=== PATIENT | female | born 1990 | race Caucasian/White ===

== ENCOUNTER 2020-08-12 15:24 | Outpatient (REF) | payer MEDICAID, SELFPAY ==
[2020-08-12 20:53] LABS: HGB 12.3 g/dL (11.2-15.7); MCH 22.8 pg (27.0-33.0); MCHC 30.8 % (32.0-36.0); MCV 74.2 fL (80-95); MPV 11.6 fL (8.0-11.0); Platelet Count 296 10^3/uL (130-400); RBC 5.39 10^6/uL (3.93-5.22); RDW 16.5 % (11.7-14.6); RDW-SD 43.8 fL; WBC 9.22 10^3/uL (4.4-10.8)
[2020-08-12 21:17] LABS: TSH (W/Ref FT4) 1.47 uIU/mL (0.36-3.74)
[2020-08-13 10:17] LABS: Anion Gap 12.6 mmol/L (3-11); BUN 6 mg/dL (7-18); CO2 25.4 mmol/L (21.0-32.0); CREATININE 0.9 mg/dL (0.55-1.02); Chloride 107 mmol/L (98-107); Glucose 92 mg/dL (74-106); Sodium 145 mmol/L (136-145)
== END 2020-08-12 15:25 | disposition home or self-care (01) ==
LOC: LBN 15:24
PROVIDERS: Visit Provider Family Medicine
DX: R20.2 Paresthesia of skin (principal)
CPT/HCPCS: 80048; 85027; 83880; 84443

== ENCOUNTER 2020-10-24 10:37 | Outpatient (REF) | payer MEDICAID, SELFPAY ==
[2020-10-25 13:37] LABS: COVID-19 RT-PCR UVMMC Result Negative (Negative)
== END 2020-10-24 10:38 | disposition home or self-care (01) ==
LOC: LBN 10:37
PROVIDERS: Visit Provider Nurse Practitioner Family
DX: Z20.822 Contact with and (suspected) exposure to COVID-19 (principal)
CPT/HCPCS: U0003

== ENCOUNTER 2020-11-09 14:23 | Outpatient (CLI) | payer MEDICAID, SELFPAY ==
--- NOTE | 2020-11-09 | DI.RAD_ITS ---
Exam(s) XR CHEST 2V PA LATERAL EXAM: XR CHEST 2V PA LATERAL CLINICAL HISTORY: COUGH TECHNIQUE: 2D digital imaging was performed. COMPARISON: No exams were available for comparison FINDINGS: The heart is not enlarged. The lungs are clear and well expanded. No pleural effusion seen. Mediastin al contours appear intact. IMPRESSION: Normal chest. RADIATION DOSE DELIVERED: Total DLP
--- NOTE | 2020-11-09 16:42 | DI.VRAD_ITS ---
PROCEDURE INFORMATION: Exam: XR Chest Exam date and time: 11/09/2020 2:55 PM Age: 30 years old Clinical indication: Patient HX: Cough, cold [id number] that is settling in pts chest. TECHNIQUE: Imaging protocol: XR of the chest. Views: 2 views. COMPARISON: No relevant prior studies available. FINDINGS: Lungs: Incidental note made of azygos lobe. No acute infiltrates noted. Pleural spaces: Unremarkable. No pleural effusion. No pneumothorax. Heart/Mediastinum: Unremarkable. No cardiomegaly. Bones/joints: Unremarkable. IMPRESSION: No evidence for acute abnormality in the chest. Dictated and Authenticated by: Maricarmen Woodward MD. Ordering:MOUNA Marcelo MD
== END 2020-11-09 14:43 ==
PROVIDERS: Visit Provider Physician Assistant Medical
DX: R05 Cough (principal)
CPT/HCPCS: 71046

== ENCOUNTER 2021-02-25 15:44 | Outpatient (REF) | payer MEDICAID, SELFPAY ==
[2021-02-27 10:14] LABS: COVID-19 RT-PCR UVMMC Result Negative (Negative)
== END 2021-02-25 15:45 | disposition home or self-care (01) ==
LOC: LBN 15:44
PROVIDERS: Visit Provider Nurse Practitioner Family
DX: Z20.822 Contact with and (suspected) exposure to COVID-19 (principal); J34.89 Other specified disorders of nose and nasal sinuses
CPT/HCPCS: U0003

== ENCOUNTER 2022-05-29 08:24 | Emergency (ER) | payer MEDICAID, SELFPAY ==
[2022-05-29 08:31] VITALS: BP 126/68; PULSE 108; RESP 18; TEMP 36.5; O2SAT 100
--- NOTE | 2022-05-29 08:34 | DI.US_ITS ---
Exam(s) US OB 1ST TRIMESTER EXAM: US OB 1ST TRIMESTER CLINICAL HISTORY: Positive with spotting and cramping. COMPARISON: No exams were available for comparison TECHNIQUE: Transabdominal Transvaginal first trimester obstetrical ultrasound performed. FINDINGS: The uterus measures 7.6 x 5 x 5.8 cm. The endometrium measures 11 millimeters in thickness. No gest ational sac is seen. There is no fluid within the endometrial cavity. The ovaries are normal in siz e and appearance. There is no corpus luteum cyst. There is no free fluid. IMPRESSION: No intrauterine is visible at this time.. No evidence of ectopic or ovarian tors ion. DATA REPOSITORY:
[2022-05-29 08:59] LABS: Abs Immature Grans 0.03 10^3/uL (0.0-0.06); Absolute Basophil Count 0.02 10^3/uL (0.0-0.2); Absolute Eosinophil Count 0.07 10^3/uL (0.0-0.7); Absolute Lymphocyte Count 1.77 10^3/uL (1.2-3.4); Absolute Monocyte Count 0.37 10^3/uL (0.1-0.8); Absolute Neutrophil Count 6.28 10^3/uL (1.2-6.7); Basophils % 0.2; Eosinophils % 0.8; HCT 41.4 % (36.0-46.0); HGB 13.1 g/dL (11.2-15.7); Immature Grans % 0.4; Lymphocytes % 20.7; MCH 25.1 pg (27.0-33.0); MCHC 31.6 % (32.0-36.0); MCV 80 fL (80-95); MPV 11.1 fL (8.0-11.0); Monocytes % 4.3; Neutrophils % 73.6; Platelet Count 245 10^3/uL (130-400); RBC 5.21 10^6/uL (3.93-5.22); RDW 14.2 % (11.7-14.6); RDW-SD 41.1 fL; WBC 8.54 10^3/uL (4.4-10.8)
[2022-05-29 09:19] LABS: ALT 23 U/L (14-59); AST 14 U/L (15-37); Albumin 3.6 g/dL (3.4-5.0); Alkaline Phosphatase 77 U/L (46-116); Anion Gap 9.5 mmol/L (3-11); BUN 6 mg/dL (7-18); Bilirubin, Total 0.2 mg/dL (0.2-1.0); CO2 24.5 mmol/L (21.0-32.0); CREATININE 0.8 mg/dL (0.55-1.02); Calcium 8.5 mg/dL (8.5-10.1); Chloride 103 mmol/L (98-107); Estimated GFR 101.59 (mL/min/1.73m2); Glucose 156 mg/dL (74-106); HCG Quant, Pregnancy 12 mIU/mL (1-3); Potassium 3.6 mmol/L (3.5-5.1); Sodium 137 mmol/L (136-145); Total Protein 7.1 g/dL (6.4-8.2)
--- NOTE | 2022-05-29 10:02 | NUR.NOTE ---
Nursing Note: Report received from Kenton MALLOY
[2022-05-29 10:21] LABS: Bilirubin Negative (Negative); Blood Negative (Negative); Clarity Clear (Clear); Glucose Negative (Negative); Ketones Negative (Negative); Leukocyte Esterase Negative (Negative); Nitrite Negative (Negative); Specific Gravity 1.025 (1.005-1.025); Urobilinogen 0.2 EU/dL (Up TO 0.2)
[2022-05-29 10:47] VITALS: BP 109/63; PULSE 82; RESP 16; O2SAT 99
--- NOTE | 2022-05-29 11:17 | W.ED.GENAD ---
Discharge Plan Disposition Patient Disposition: Home Discharge Details Clinical Impression: Early stage of , Vaginal bleeding during Primary Care Provider: [facility] Provider: Ari Lau Home Meds and New Rx's Prescriptions: No Action No Known Home Meds Discharge Instructions Instructions: Non-Threatening First Trimester Vaginal Bleed (ED) Additional Instructions: Continue to monitor symptoms and if you have any new or significant worsening of your symptoms return immediately to the emergency department for reassessment. Otherwise please follow-up with your OB provider next week as scheduled and inform them of your visit today. Please start taking a vitamin today Referrals: [facility] [Outside] - None Discharge Data Discharge Date/Time-TO BE ENTERED AT DEPARTURE: 05/29/22 11:36 Medical Decision Making Patient presenting to the emergency department for chief complaint of nausea and abdominal cramping over the past couple weeks. Just 3 days ago she tested positive for and last menstrual period was 04/27/2022. Patient did have spotting a couple days ago which is fully resolved and states that cramping has slightly improved. Physical exam was unremarkable but vaginal exam was deferred at this time. Patient is a G2, P1 with no reported issues with delivery but has had a miscarriage. We will plan on checking labs including hCG quant and ultrasound imaging. High suspicion of early with potential spotting due to upcoming menses but also of consideration is non-IUP , signs of early . Review of labs show that patient does have positive urine test, overall unremarkable nondiagnostic CBC, CMP shows BUN of 6, glucose of 156, low AST. Beta quant is 12, urine is unremarkable for any signs of infection and all values are within normal limits, patient is O- for blood type. Ultrasound was reviewed and read as no findings noted. I did call and speak with Dr. Ordonez OB at [facility] which patient is a patient of that group. After discussion of case along with recommendations he stated to hold off on any RhoGAM, and to have patient continue to monitor symptoms with close return precautions for worsening of symptoms otherwise to follow-up in their office as previously scheduled for next week. Discussed this with patient who is in agreement with plan of care I did recommend that she resume vitamins starting today. After discussion of diagnosis and plan of care patient has no further needs, questions, or concerns and states clear understanding to return to the emergency department for any worsening symptoms. This documentation was generated using Qeex[employer] dictation system, please disregard any oddities of phrase or misspellings. HPI General Mode of arrival: ambulatory. Date/Time Provider Initiated Documentation: 05/29/22 08:34. Limitations to Documentation: no limitations. Information obtained by: patient and RN notes reviewed. History of Present Illness 31 year old F presents to the emergency department with the chief complaint of Positive with some nausea and spotting, described as moderate, with intensity rated at 4. Quality is described as aching, and is localized to the abdomen. Patient reports no radiation. Patient started experiencing this week(s) (2) and it has been constant. No relieving factors improve symptom(s), No exacerbating factors reported . Patient notes no other symptoms.. Patient did receive the following treatments prior to arrival, none Related Data Home Medications Medication Instructions Recorded Confirmed Unknown [No Known Home Meds] 05/29/22 05/29/22 Allergies Allergy/AdvReac Type Severity Reaction Status Date / Time aspirin Allergy Unverified 05/29/22 08:34 General Stated Complaint: Abd Prob CALLIE: 3 Review of Systems Constitutional Constitutional: Denies chills, Denies fever(s) and Reports poor appetite Cardiovascular Cardiovascular: Denies chest pain and Denies dyspnea Respiratory Respiratory: Denies cough and Denies dyspnea Gastrointestinal Gastrointestinal: Reports as per HPI, Reports abdominal pain, Denies melena, Denies change in bowel habits, Denies constipation, Denies diarrhea, Reports nausea and Reports vomiting Genitourinary Genitourinary: Reports as per HPI, Denies hematuria, Reports light periods, Denies dyspareunia, Denies pelvic pain, Denies flank pain, Denies urinary incontinence, Denies urinary hesitancy, Denies urinary urgency and Denies vaginal discharge Integumentary/Breasts Skin/Breast: Denies rash PFSH All Active Problems Early stage of (Acute) Vaginal bleeding during (Acute) Surgical History History of wisdom tooth extraction (2014) Family History Mother Asthma Depression Paternal Aunt No problems noted. 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 Pets and animals: Yes Pets and animals: dog(s) Sexually active: Yes Do you think of yourself as: straight/heterosexual Current gender identity: female What is your relationship status?: never How often do you talk on the phone with friends or family?: three or more times per week How often do you get together with friends or relatives?: twice per week Do you belong to any clubs or organized social groups?: no Panel score (0-1 are the most socially isolated patients): 1 What type of physical activity do you participate in: none Special kaylee needs: No Seatbelt use: always Helmet use: No Drive intox or ride w/intox rental car ferry driver: No Do you feel safe at home: Yes Do you feel safe in your relationship?: Yes Exam Const General: cooperative Orientation: alert, awake and oriented x3 Resp Effort & Inspection: normal respiratory effort and able to speak in complete sentences Auscultation: clear to auscultation bilaterally Cardio Rate: regular rate Rhythm: regular rhythm Heart Sounds: S1 normal and S2 normal GI Palpation: soft, no hepatosplenomegaly, not firm, no guarding, no masses, no pulsatile masses, not rigid, no splenomegaly and tender Auscultation: normal bowel sounds General: deferred Back/Spine/Pelvis Back: no CVA tenderness Neuro General: patient alert, patient awake, patient oriented x3, gait normal and moves all extremities Course Vital Signs Vital signs: Vital Signs Temperature 36.5 C 05/29/22 08:31 Pulse 108 H 05/29/22 08:31 Respiratory Rate 18 05/29/22 08:31 Blood Pressure 126/68 05/29/22 08:31 Pulse Oximetry 100 05/29/22 08:31 Temperature 36.5 C 05/29/22 08:31 Temperature Source Temporal Artery Scan 05/29/22 08:31 Pulse 82 05/29/22 10:47 Respiratory Rate 16 05/29/22 10:47 Respiratory Effort Normal, Non-Labored 05/29/22 08:33 Blood Pressure 109/63 05/29/22 10:47 Pulse Oximetry 99 05/29/22 10:47 Oxygen Delivery Method Room Air 05/29/22 10:47 Oxygen Flow Rate 0 05/29/22 10:47 Lab/Test Results Lab/Test Results: Laboratory Tests Range/Units 05/29/22 05/29/22 05/29/22 08:51 08:51 08:51 WBC (4.4-10.8) 10^3/uL 8.54 RBC (3.93-5.22) 10^6/uL 5.21 Hgb (11.2-15.7) g/dL 13.1 Hct (36.0-46.0) % 41.4 MCV (80-95) fL 80 MCH (27.0-33.0) pg 25.1 L MCHC (32.0-36.0) % 31.6 L RDW (11.7-14.6) % 14.2 Plt Count (130-400) 10^3/uL 245 MPV (8.0-11.0) fL 11.1 H Immature Gran % 0.4 Neutrophils % 73.6 Lymphocytes % 20.7 Monocytes % 4.3 Eosinophils % 0.8 Basophils % 0.2 Nucleated RBC % (0.0-0.3) % 0.0 Absolute Neutrophils (1.2-6.7) 10^3/uL 6.28 Absolute Lymphocytes (1.2-3.4) 10^3/uL 1.77 Absolute Monocytes (0.1-0.8) 10^3/uL 0.37 Absolute Eosinophils (0.0-0.7) 10^3/uL 0.07 Absolute Basophils (0.0-0.2) 10^3/uL 0.02 Sodium (136-145) mmol/L 137 Potassium (3.5-5.1) mmol/L 3.6 Chloride (98-107) mmol/L 103 Carbon Dioxide (21.0-32.0) mmol/L 24.5 Anion Gap (3-11) mmol/L 9.5 BUN (7-18) mg/dL 6 L Creatinine (0.55-1.02) mg/dL 0.8 Est GFR (CKD-EPI 2020) (mL/min/1.73m2) 101.59 Glucose (74-106) mg/dL 156 H Calcium (8.5-10.1) mg/dL 8.5 Total Bilirubin (0.2-1.0) mg/dL 0.2 AST (15-37) U/L 14 L ALT (14-59) U/L 23 Alkaline Phosphatase (46-116) U/L 77 Total Protein (6.4-8.2) g/dL 7.1 Albumin (3.4-5.0) g/dL 3.6 Beta HCG, Quant (1-3) mIU/mL 12 H Urine Color (Yellow) Urine Clarity (Clear) Urine pH (5-8) Ur Specific [place] (1.005-1.025) Urine Protein (Negative) mg/dL Urine Ketones (Negative) mg/dL Urine Blood (Negative) Urine Nitrite (Negative) Urine Bilirubin (Negative) Urine Urobilinogen (Up TO 0.2) EU/dL Ur Leukocyte Esterase (Negative) Urine Glucose (Negative) mg/dL Patient ABO/Rh O Negative Range/Units 05/29/22 10:05 WBC (4.4-10.8) 10^3/uL RBC (3.93-5.22) 10^6/uL Hgb (11.2-15.7) g/dL Hct (36.0-46.0) % MCV (80-95) fL MCH (27.0-33.0) pg MCHC (32.0-36.0) % RDW (11.7-14.6) % Plt Count (130-400) 10^3/uL MPV (8.0-11.0) fL Immature Gran % Neutrophils % Lymphocytes % Monocytes % Eosinophils % Basophils % Nucleated RBC % (0.0-0.3) % Absolute Neutrophils (1.2-6.7) 10^3/uL Absolute Lymphocytes (1.2-3.4) 10^3/uL Absolute Monocytes (0.1-0.8) 10^3/uL Absolute Eosinophils (0.0-0.7) 10^3/uL Absolute Basophils (0.0-0.2) 10^3/uL Sodium (136-145) mmol/L Potassium (3.5-5.1) mmol/L Chloride (98-107) mmol/L Carbon Dioxide (21.0-32.0) mmol/L Anion Gap (3-11) mmol/L BUN (7-18) mg/dL Creatinine (0.55-1.02) mg/dL Est GFR (CKD-EPI 2020) (mL/min/1.73m2) Glucose (74-106) mg/dL Calcium (8.5-10.1) mg/dL Total Bilirubin (0.2-1.0) mg/dL AST (15-37) U/L ALT (14-59) U/L Alkaline Phosphatase (46-116) U/L Total Protein (6.4-8.2) g/dL Albumin (3.4-5.0) g/dL Beta HCG, Quant (1-3) mIU/mL Urine Color (Yellow) Yellow Urine Clarity (Clear) Clear Urine pH (5-8) 7.0 Ur Specific [place] (1.005-1.025) 1.025 Urine Protein (Negative) mg/dL Negative Urine Ketones (Negative) mg/dL Negative Urine Blood (Negative) Negative Urine Nitrite (Negative) Negative Urine Bilirubin (Negative) Negative Urine Urobilinogen (Up TO 0.2) EU/dL 0.2 Ur Leukocyte Esterase (Negative) Negative Urine Glucose (Negative) mg/dL Negative Patient ABO/Rh POC- Test(urine) Positive
== END 2022-05-29 11:36 | disposition home or self-care (01) ==
PROVIDERS: Emergency Provider Nurse Practitioner Family
DX: O20.8 Other hemorrhage in early pregnancy (principal)
CPT/HCPCS: 36415; 80053; 81025; 86900; 86901; 99284; 76801; 81003; 84702; 85025; 99283

== ENCOUNTER 2022-05-31 09:51 | Emergency (ER) | payer MEDICAID, SELFPAY ==
[2022-05-31 10:00] VITALS: BP 111/67; PULSE 92; RESP 14; TEMP 36.7; O2SAT 98
[2022-05-31] MEDS: Acetaminophen 500 MG TAB PO (10:53)
[2022-05-31 11:02] LABS: Abs Immature Grans 0.04 10^3/uL (0.0-0.06); Absolute Basophil Count 0.02 10^3/uL (0.0-0.2); Absolute Eosinophil Count 0.09 10^3/uL (0.0-0.7); Absolute Lymphocyte Count 1.46 10^3/uL (1.2-3.4); Absolute Monocyte Count 0.58 10^3/uL (0.1-0.8); Absolute Neutrophil Count 7.88 10^3/uL (1.2-6.7); Basophils % 0.2; Eosinophils % 0.9; HCT 42.8 % (36.0-46.0); HGB 13.2 g/dL (11.2-15.7); Immature Grans % 0.4; Lymphocytes % 14.5; MCH 24.6 pg (27.0-33.0); MCHC 30.8 % (32.0-36.0); MCV 80 fL (80-95); MPV 11.1 fL (8.0-11.0); Monocytes % 5.8; Neutrophils % 78.2; Platelet Count 229 10^3/uL (130-400); RBC 5.36 10^6/uL (3.93-5.22); RDW 14.1 % (11.7-14.6); RDW-SD 40.6 fL; WBC 10.07 10^3/uL (4.4-10.8)
[2022-05-31 11:26] LABS: Bilirubin Negative (Negative); Blood Moderate (Negative); Clarity Clear (Clear); Glucose Negative (Negative); Ketones Negative (Negative); Leukocyte Esterase Negative (Negative); Nitrite Negative (Negative); Urobilinogen 0.2 mg/dL (Up to 0.2); pH 5.5 (5-8)
[2022-05-31 11:26] LABS: ALT 27 U/L (14-59); AST 19 U/L (15-37); Albumin 3.7 g/dL (3.4-5.0); Alkaline Phosphatase 83 U/L (46-116); Anion Gap 6.3 mmol/L (3-11); BUN 7 mg/dL (7-18); Bilirubin, Total 0.3 mg/dL (0.2-1.0); CO2 28.7 mmol/L (21.0-32.0); CREATININE 0.7 mg/dL (0.55-1.02); Calcium 8.3 mg/dL (8.5-10.1); Chloride 104 mmol/L (98-107); Estimated GFR 119.24 (mL/min/1.73m2); Glucose 86 mg/dL (74-106); HCG Quant, Pregnancy 4 mIU/mL (1-3); Potassium 3.8 mmol/L (3.5-5.1); Sodium 139 mmol/L (136-145); Total Protein 7.2 g/dL (6.4-8.2)
[2022-05-31 11:32] LABS: Bacteria Negative HPF (Negative); C & S Indicated? No; Casts Negative LPF (Negative); Crystals Negative HPF (Negative); Epithelial Cells Few HPF (Negative); Mucus Negative (Negative); RBC 20-50 HPF (0-2); WBC 0-2 HPF (0-5)
--- NOTE | 2022-05-31 11:56 | W.ED.GENAD ---
Discharge Plan Disposition Patient Disposition: Home Condition: Stable Discharge Details Clinical Impression: Incomplete miscarriage Primary Care Provider: None,None ED Provider: Ari Lau Home Meds and New Rx's Prescriptions: No Action No Known Home Meds Discharge Instructions Instructions: Miscarriage (ED) Additional Instructions: You may continue to take [id number] pain medication as needed for discomfort. If you develop any significant worsening of your symptoms including severe pain, fever chills, uncontrollable vomiting, or change in condition return immediately to the emergency department for reassessment otherwise keep your appointment and follow-up with your VICTIMS ADVOCATE CLERK/SPECIALIST as previously scheduled. Referrals: [facility] [Outside] - 06/03/22 (Keep appointment as scheduled) Medical Decision Making Patient seen by myself a couple days ago with early , no findings noted on ultrasound but had occasional intermittent spotting and lower abdominal cramping. Patient states that she has had increase in bleeding and cramping. Denies severe sharp pain, fever chills and no clot or tissue passage. Deferred vaginal exam but external exam shows lower pelvic discomfort otherwise unremarkable findings. We will plan on checking labs again including hCG quant. We will give acetaminophen pending results. Reviewed patient results and no significant anemia is noted, CMP nondiagnostic, urinalysis shows blood otherwise again nondiagnostic. Beta quant is 4 and this is significant for miscarriage given that beta quant 2 days ago was 12. I do feel that patient is having active miscarriage. Patient already has appointment plan to see VICTIM[facility] ADVOCATE CLERK/SPECIALIST on Wednesday of this upcoming week. At this time I do feel that this is low likelihood for patient to be having ectopic given none seen on ultrasound 2 days ago. Patient was encouraged to return for any worsening of pain or discomfort, worsening symptoms or further concerns otherwise to follow-up with VICTIM[facility] ADVOCATE CLERK/SPECIALIST. After discussion of diagnosis and plan of care patient has no further needs, questions, or concerns and states clear understanding to return to the emergency department for any worsening symptoms. This documentation was generated using appMobiation system, please disregard any oddities of phrase or misspellings. HPI General Mode of arrival: ambulatory. Date/Time Provider Initiated Documentation: 05/31/22 09:52. Limitations to Documentation: no limitations. Information obtained by: patient and RN notes reviewed. History of Present Illness 31 year old F presents to the emergency department with the chief complaint of Vaginal bleeding and cramping, described as mild, with intensity rated at 1. Quality is described as aching, and is localized to the pelvis. Patient reports no radiation. Patient started experiencing this day(s) (3) and it has been constant. No relieving factors improve symptom(s), No exacerbating factors reported . Patient notes no other symptoms.. Patient did receive the following treatments prior to arrival, none Related Data Home Medications Medication Instructions Recorded Confirmed Unknown [No Known Home Meds] 05/29/22 05/29/22 Allergies Allergy/AdvReac Type Severity Reaction Status Date / Time aspirin Allergy Unverified 05/29/22 08:34 General Stated Complaint: VICTIM[employer] ADVOCATE CLERK/SPECIALIST CALLIE: 3 Review of Systems Constitutional Constitutional: Denies chills, Denies fever(s) and Denies malaise Cardiovascular Cardiovascular: Denies chest pain, Denies syncope, Denies lightheadedness and Denies dyspnea Respiratory Respiratory: Denies dyspnea Gastrointestinal Gastrointestinal: Denies abdominal pain Genitourinary Genitourinary: Reports as per HPI, Reports abnormal vaginal bleeding, Reports pelvic pain and Denies flank pain Musculoskeletal Musculoskeletal: Denies back pain Neurologic Neurologic: Denies syncope PFSH All Active Problems Early stage of (Acute) Vaginal bleeding during (Acute) Incomplete miscarriage (Acute) Surgical History History of wisdom tooth extraction (2013) Family History Mother Asthma Depression Paternal Aunt No problems noted. 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 Pets and animals: Yes Pets and animals: dog(s) Sexually active: Yes Do you think of yourself as: straight/heterosexual Current gender identity: female What is your relationship status?: never How often do you talk on the phone with friends or family?: three or more times per week How often do you get together with friends or relatives?: twice per week Do you belong to any clubs or organized social groups?: no Panel score (0-1 are the most socially isolated patients): 1 What type of physical activity do you participate in: none Special kaylee needs: No Seatbelt use: always Helmet use: No Drive intox or ride w/intox emt driver: No Do you feel safe at home: Yes Do you feel safe in your relationship?: Yes History History 3 Para Hx # Term Pregnancies 1 Multiple births Hx # Pregnancies Ectopic pregnancies AB induced Hx Number of Living Children AB spontaneous 1 Exam Const General: cooperative Orientation: alert, awake and oriented x3 Resp Effort & Inspection: normal respiratory effort and able to speak in complete sentences Auscultation: clear to auscultation bilaterally Cardio Rate: regular rate Rhythm: regular rhythm Heart Sounds: S1 normal and S2 normal GI Palpation: soft, no hepatosplenomegaly, not firm, no guarding, no masses, no pulsatile masses, not rigid, no splenomegaly and tender suprapubicly Auscultation: normal bowel sounds General: deferred Back/Spine/Pelvis Back: no CVA tenderness Neuro General: patient alert, patient awake, patient oriented x3, gait normal and moves all extremities Course Vital Signs Vital signs: Vital Signs Temperature 36.7 C 05/31/22 10:00 Pulse 92 H 05/31/22 10:00 Respiratory Rate 14 05/31/22 10:00 Blood Pressure 111/67 05/31/22 10:00 Pulse Oximetry 98 05/31/22 10:00 Temperature 36.7 C 05/31/22 10:00 Temperature Source Oral 05/31/22 10:00 Pulse 92 H 05/31/22 10:00 Respiratory Rate 14 05/31/22 10:00 Respiratory Effort Normal 05/31/22 09:53 Blood Pressure 111/67 05/31/22 10:00 Pulse Oximetry 98 05/31/22 10:00 Oxygen Delivery Method Room Air 05/31/22 10:00 Oxygen Flow Rate 0 05/31/22 10:00 Pain Level 5 05/31/22 10:00 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 05/31/22 10:00 Lab/Test Results Lab/Test Results: Laboratory Tests Range/Units 05/31/22 05/31/22 05/31/22 10:55 10:55 11:20 WBC (4.4-10.8) 10^3/uL 10.07 RBC (3.93-5.22) 10^6/uL 5.36 H Hgb (11.2-15.7) g/dL 13.2 Hct (36.0-46.0) % 42.8 MCV (80-95) fL 80 MCH (27.0-33.0) pg 24.6 L MCHC (32.0-36.0) % 30.8 L RDW (11.7-14.6) % 14.1 Plt Count (130-400) 10^3/uL 229 MPV (8.0-11.0) fL 11.1 H Immature Gran % 0.4 Neutrophils % 78.2 Lymphocytes % 14.5 Monocytes % 5.8 Eosinophils % 0.9 Basophils % 0.2 Nucleated RBC % (0.0-0.3) % 0.0 Absolute Neutrophils (1.2-6.7) 10^3/uL 7.88 H Absolute Lymphocytes (1.2-3.4) 10^3/uL 1.46 Absolute Monocytes (0.1-0.8) 10^3/uL 0.58 Absolute Eosinophils (0.0-0.7) 10^3/uL 0.09 Absolute Basophils (0.0-0.2) 10^3/uL 0.02 Sodium (136-145) mmol/L 139 Potassium (3.5-5.1) mmol/L 3.8 Chloride (98-107) mmol/L 104 Carbon Dioxide (21.0-32.0) mmol/L 28.7 Anion Gap (3-11) mmol/L 6.3 BUN (7-18) mg/dL 7 Creatinine (0.55-1.02) mg/dL 0.7 Est GFR (CKD-EPI 2020) (mL/min/1.73m2) 119.24 Glucose (74-106) mg/dL 86 Calcium (8.5-10.1) mg/dL 8.3 L Total Bilirubin (0.2-1.0) mg/dL 0.3 AST (15-37) U/L 19 ALT (14-59) U/L 27 Alkaline Phosphatase (46-116) U/L 83 Total Protein (6.4-8.2) g/dL 7.2 Albumin (3.4-5.0) g/dL 3.7 Beta HCG, Quant (1-3) mIU/mL 4 H Urine Color (Yellow) Yellow Urine Clarity (Clear) Clear Urine pH (5-8) 5.5 Ur Specific [place] (1.005-1.025) 1.010 Urine Protein (Negative) mg/dL Negative Urine Ketones (Negative) mg/dL Negative Urine Blood (Negative) Moderate H Urine Nitrite (Negative) Negative Urine Bilirubin (Negative) Negative Urine Urobilinogen (Up to 0.2) mg/dL 0.2 Ur Leukocyte Esterase (Negative) Negative Urine RBC (0-2) HPF 20-50 H Urine WBC (0-5) HPF 0-2 Ur Epithelial Cells (Negative) HPF Few Urine Crystals (Negative) HPF Negative Urine Bacteria (Negative) HPF Negative Urine Casts (Negative) LPF Negative Urine Mucus (Negative) Negative Ur Culture Indicated? No Urine Glucose (Negative) mg/dL Negative
[2022-05-31 12:17] VITALS: BP 112/75; PULSE 74; RESP 14; TEMP 36.8; O2SAT 99
== END 2022-05-31 14:08 | disposition home or self-care (01) ==
PROVIDERS: Emergency Provider Nurse Practitioner Family
DX: O03.4 Incomplete spontaneous abortion without complication (principal)
CPT/HCPCS: 36415; 80053; 99283; 81003; 81015; 84702; 85025; 99282

== ENCOUNTER 2022-06-30 13:53 | Emergency (ER) | payer MEDICAID, SELFPAY ==
[2022-06-30 14:00] VITALS: BP 120/70; PULSE 99; RESP 16; TEMP 37; O2SAT 100
--- OUTSIDE RECORDS SUMMARY | 2022-06-30 14:00 | XMS_ITS | Continuity of Care Document ---
Author Name Unknown Organization [facility] Address [address] [place] [id number] Encounter LTTL_DE FIN NBR [id number] Date(s): 04/09/22 - 04/09/[address] [id number] Encounter Diagnosis Influenza A(Discharge Diagnosis) - 04/09/22 Discharge Disposition: Home or Self Care Attending Physician: Bornson Jones MD Admitting Physician: Bronson Jones MD Allergies, Adverse Reactions, Alerts Substance Reaction Severity Status aspirin Severe Active Functional Status 04/09/22 Other exposure to Infectious Disease COV ID-19 Symptoms Present Problem List Condition Confirmation Course Effective Dates Status Health St atus Informant Disease caused by 2019 novel coronavirus 1 Confirmed 04/07/22 Active Influenza A Confirmed Active 1Problem added by Rule (IC_COVID19_AUTO_PROBLEM) following SARS-CoV-2 (COVID-19) Antigen (Binax) POCT from Nasal Swab collected on 07-APR-2022 17:03:00 EST tested positive for COVID-19. Vital Signs Most recent to oldest [Reference Range]: 1 Temperature Temporal Artery [36-38 Deg C ] 37 Deg C (04/09/22 11:45 AM) Peripheral Pulse Rate [60-100 bpm] 110 b pm *HI* (04/09/22 11:45 AM) Blood Pressure [90-140/60-90 mmHg] 142/6 9mmHg *HI* (04/09/22 11:45 AM) Weight Dosing 82.00 kg (04/09/22 11:57 AM) Weight Estimated 82.00 kg (04/09/22 11:45 AM) Height/Length Dosing 170.000 cm (04/09/22 11:57 AM) Height/Length Estimated 170.000 cm (04/09/22 11:45 AM) Social History Social History Type Response Tobacco Current everyday tob acco user Tobacco Use:. 1 ppd per day. Sex Hospital Discharge Instructions Patient Education 04/09/2022 12:28:38 Influenza, Adult Influenza, Adult Influenza, also called the flu, is a viral infection that mainly affects the respiratory tract. This includes the lungs, nose, and throat. The flu spreads easily from person to person (is contagious). It causes common cold symptoms, along with high fever and body aches. What are the causes? This condition is caused by the influenza virus. You can get the virus by: ??? Breathing in droplets that are in the air from an infected person's cough or sneeze. ??? Touching something that has the virus on it (has been contaminated) and then touching your mouth, nose, or eyes. What increases the risk? The following factors may make you more likely to get the flu: ??? Not washing or sanitizing your hands often. ??? Having close contact with many people during cold and flu season. ??? Touching your mouth, eyes, or nose without first washing or sanitizing your hands. ??? Not getting an annual flu shot. You may have a higher risk for the flu, including serious problems, such as a lung infection (pneumonia), if you: ??? Are older than 65. ??? Are . ??? Have a weakened disease-fighting system (immune system). This includes people who have HIV or AIDS, are on chemotherapy, or are taking medicines that reduce (suppress) the immune system. ??? Have a long-term (chronic) illness, such as heart disease, kidney disease, diabetes, or lung disease. ??? Have a liver disorder. ??? Are severely overweight (morbidly obese). ??? Have anemia. ??? Have asthma. What are the signs or symptoms? Symptoms of this condition usually begin suddenly and last 4???14 days. These may include: ??? Fever and chills. ??? Headaches, body aches, or muscle aches. ??? Sore throat. ??? Cough. ??? Runny or stuffy (congested) nose. ??? Chest discomfort. ??? Poor appetite. ??? Weakness or fatigue. ??? Dizziness. ??? Nausea or vomiting. How is this diagnosed? This condition may be diagnosed based on: ??? Your symptoms and medical history. ??? A physical exam. ??? Swabbing your nose or throat and testing the fluid for the influenza virus. How is this treated? If the flu is diagnosed early, you can be treated with antiviral medicine that is given by mouth (orally) or through an IV. This can help reduce how severe the illness is and how long it lasts. Taking care of yourself at home can help relieve symptoms. Your health care provider may recommend: ??? Taking lasr-iwf-zpewtqo medicines. ??? Drinking plenty of fluids. In many cases, the flu goes away on its own. If you have severe symptoms or complications, you may be treated in a hospital. Follow these instructions at home: Activity ??? Rest as needed and get plenty of sleep. ??? Stay home from work or school as told by your health care provider. Unless you are visiting your health care provider, avoid leaving home until your fever has been gone for 24 hours without taking medicine. Eating and drinking ??? Take an oral rehydration solution (ORS). This is a drink that is sold at pharmacies and retail stores. ??? Drink enough fluid to keep your urine pale yellow. ??? Drink clear fluids in small amounts as you are able. Clear fluids include water, ice chips, fruit juice mixed with water, and low-calorie sports drinks. ??? Eat bland, htuw-wp-helgqv foods in small amounts as you are able. These foods include bananas, applesauce, rice, lean meats, toast, and crackers. ??? Avoid drinking fluids that contain a lot of sugar or caffeine, such as energy drinks, regular sports drinks, and soda. ??? Avoid alcohol. ??? Avoid spicy or fatty foods. General instructions ??? Take itpz-nkx-trlxhzu and prescription medicines only as told by your health care provider. ??? Use a cool mist humidifier to add humidity to the air in your home. This can make it easier to breathe. ??? When using a cool mist humidifier, clean it daily. Empty the water and replace it with clean water. ??? Cover your mouth and nose when you cough or sneeze. ??? Wash your hands with soap and water often and for at least 20 seconds, especially after you cough or sneeze. If soap and water are not available, use alcohol-based hand hoisting engine operator. ??? Keep all follow-up visits. This is important. How is this prevented? Get an annual flu shot. This is usually available in late summer, fall, or winter. Ask your health care provider when you should get your flu shot. ??? Avoid contact with people who are sick during cold and flu season. This is generally fall and winter. Contact a health care provider if: ??? You develop new symptoms. ??? You have: ??? Chest pain. ??? Diarrhea. ??? A fever. ??? Your cough gets worse. ??? You produce more mucus. ??? You feel nauseous or you vomit. Get help right away if you: ??? Develop shortness of breath or have difficulty breathing. ??? Have skin or nails that turn a bluish color. ??? Have severe pain or stiffness in your neck. ??? Develop a sudden headache or sudden pain in your face or ear. ??? Cannot eat or drink without vomiting. These symptoms may represent a serious problem that is an emergency. Do not wait to see if the symptoms will go away. Get medical help right away. Call your local emergency services (911 in the [place] Do not drive yourself to the hospital. Summary ??? Influenza, also called the flu, is a viral infection that primarily affects your respiratory tract. ??? Symptoms of the flu usually begin suddenly and last 4???14 days. ??? Getting an annual flu shot is the best way to prevent getting the flu. ??? Stay home from work or school as told by your health care provider. Unless you are visiting your health care provider, avoid leaving home until your fever has been gone for 24 hours without taking medicine. ??? Keep all follow-up visits. This is important. This information is not intended to replace advice given to you by your health care provider. Make sure you discuss any questions you have with your health care provider. Document Revised: 11/15/2020 Document Reviewed: 11/15/2020 Elsevier Patient Education ?? 2021 [employer]. Follow Up Care 04/09/2022 11:45:37 With:Primary care provider Address: When:1 to 2 weeks only if needed Physician Emergency department Note * Naida Soto [employer] ACCOUNT ASSISTANT: PERFORM Event Display: ED Note Physician Authored Date: [id number] TERESA CLOUD :1990 Age:31 years Sex:Female Visit Date:04/09/2022 Basic Information Time Seen: Naida Soto [employer] ACCOUNT ASSISTANT / 04/09/2022 11:49 Chief Complaint Pt reports + COVID on 04/07, c/o headache. Last took tylenol at 1030. History Of Present Illness: 31-year-old female no significant past medical history presents with headache generalized malaise and body aches.?? Her son has had cough fever and similar symptoms.?? She did take a home COVID test which was positive.?? Her son reportedly had COVID 1 month ago Review of Systems: Constitutional:?No??fevers,?No??chills,?No??sweats Positive for body aches and malaise Eye:?No??recent visual problems ENT:?No??ear pain,?No??nasal congestion,?No??sore throat Respiratory:?No??shortness of breath,?No??cough Cardiovascular:?No??Chest pain,?No??palpitations,?No??syncope Gastrointestinal:?Nonausea,?No??vomiting,?No??diarrhea Musculoskeletal:??No??back pain,??No??neck pain,??No??joint pain,??Positive for??muscle pain,??No??decreased range of motion Integumentary:?No??rash,?No??pruritus,?No??abrasions Neurologic: Alert & oriented X 4, Positive for headache Psychiatric:?No??anxiety,?No??depression Physical Exam Vitals & Measurements T:??37?C ??(Temporal Artery)?? HR:??110??(Peripheral)?? BP:??142/69?? HT:??170.000??cm?? WT:??82.00??kg??(Estimated)?? O2 Therapy:??Room air?? General: Alert and oriented, well nourished,?No??acute distress Eye: PERRL, EOMI,?Normal??conjunctiva HENT: Normocephalic?Normal?? hearing, moist oral mucosa,?No??scleral icterus,?No??sinus tenderness Neck: Supple, non-tender Lungs: Clear to auscultation,?Non-labored?? respiration Heart:?Normal?? rate,?Regular??rhythm,?? Musculoskeletal:?Normal?? range of motion and strength,?No??tenderness,?No??swelling Skin: Skin is warm, dry and pink,?No??rashes,?No??lesions Neurologic: Awake, alert and oriented X4, Psychiatric: Cooperative, appropriate mood and affect Medical Decision Making: Adult patient who presents with child with similar symptoms she tested positive for COVID.?? I do not feel any reason to retest her her vital signs are stable oxygenating in the high 90s on room air eating and drinking lung sounds clear.?? Child was swabbed and was positive for influenza A.?? Will assume she has same diagnosis based on her symptoms Procedure No Qualifying Data Assessment/Plan 1.??Influenza A??J10.1 Continue symptom management push fluids Patient Education Influenza, Adult Follow Up With When Contact Information Primary care provider Within 1 to 2 weeks, only if needed Additional Instructions: Problem List/Past Medical History Ongoing Disease caused by 2019 novel coronavirus Influenza A Historical No qualifying data Allergies aspirin Social History Electronic Cigarette/Vaping Electronic Cigarette Use: Never. Tobacco Current everyday tobacco user Tobacco Use:. 1 ppd per day. Electronically Signed on 04/09/22 01:29 PM Naida Soto SHARA Emergency department Discharge instructions * Naida Soto [employer] ACCOUNT ASSISTANT: PERFORM Event Display: ED Discharge Information Authored Date: [id number] TERESA CLOUD :1990 Age:31 years Sex:Female Visit Date:04/09/2022 Discharge Instructions We would like to thank you for allowing us to assist you with your healthcare needs. The following includes patient education materials and information regarding your injury/illness. Diagnosis from Today's Visit Influenza A Discharge Vitals Temperature??(Temporal Artery) 98.6 ??F (37 ??C) Heart Rate??(Peripheral) 110 Blood Pressure?? 142/69?? Height?? 66.93 in (170.000 cm) Weight??(Estimated) 180.81 lb (82.00 kg) Allergies aspirin What to Do Next You Need to Schedule the Following Appointments Follow Up with??Primary care provider When:??Within 1 to 2 weeks, only if needed You were treated today on an emergency basis; it may be duarte to contact your primary care provider to notify them of your visit today. You may have been referred to your regular doctor or a specialist, please follow up as instructed. If your condition worsens or you can't get in to see the doctor, contact the Emergency Department. Education Materials Influenza, Adult Influenza, also called the flu, is a viral infection that mainly affects the respiratory tract. This includes the lungs, nose, and throat. The flu spreads easily from person to person (is contagious). It causes common cold symptoms, along with high fever and body aches. What are the causes? This condition is caused by the influenza virus. You can get the virus by: ? Breathing in droplets that are in the air from an infected person's cough or sneeze. ? Touching something that has the virus on it (has been contaminated) and then touching your mouth, nose, or eyes. What increases the risk? The following factors may make you more likely to get the flu: ? Not washing or sanitizing your hands often. ? Having close contact with many people during cold and flu season. ? Touching your mouth, eyes, or nose without first washing or sanitizing your hands. ? Not getting an annual flu shot. You may have a higher risk for the flu, including serious problems, such as a lung infection (pneumonia), if you: ? Are older than 65. ? Are . ? Have a weakened disease-fighting system (immune system). This includes people who have HIV or AIDS,are on chemotherapy, or are taking medicines that reduce (suppress) the immune system. ? Have a long-term (chronic) illness, such as heart disease, kidney disease, diabetes, or lung disease. ? Have a liver disorder. ? Are severely overweight (morbidly obese). ? Have anemia. ? Have asthma. What are the signs or symptoms? Symptoms of this condition usually begin suddenly and last 4???14 days. These may include: ? Fever and chills. ? Headaches, body aches, or muscle aches. ? Sore throat. ? Cough. ? Runny or stuffy (congested) nose. ? Chest discomfort. ? Poor appetite. ? Weakness or fatigue. ? Dizziness. ? Nausea or vomiting. How is this diagnosed? This condition may be diagnosed based on: ? Your symptoms and medical history. ? A physical exam. ? Swabbing your nose or throat and testing the fluid for the influenza virus. How is this treated? If the flu is diagnosed early, you can be treated with antiviral medicine that is given by mouth (orally) or through an IV. This can help reduce how severe the illness is and how long it lasts. Taking care of yourself at home can help relieve symptoms. Your health care provider may recommend: ? Taking ymrs-xol-gbtocsx medicines. ? Drinking plenty of fluids. In many cases, the flu goes away on its own. If you have severe symptoms or complications, you may be treated in a hospital. Follow these instructions at home: Activity ? Rest as needed and get plenty of sleep. ? Stay home from work or school as told by your health care provider. Unless you are visiting your health care provider, avoid leaving home until your fever has been gone for 24 hours without taking medicine. Eating and drinking ? Take an oral rehydration solution (ORS). This is a drink that is sold at pharmacies and retail stores. ? Drink enough fluid to keep your urine pale yellow. ? Drink clear fluids in small amounts as you are able. Clear fluids include water, ice chips, fruit juice mixed with water, and low-calorie sports drinks. ? Eat bland, hpll-oq-zqsbid foods in small amounts as you are able. These foods include bananas, applesauce, rice, lean meats, toast, and crackers. ? Avoid drinking fluids that contain a lot of sugar or caffeine, such as energy drinks, regular sports drinks, and soda. ? Avoid alcohol. ? Avoid spicy or fatty foods. General instructions ? Take psoc-hrz-dxsdybt and prescription medicines only as told by your health care provider. ? Use a cool mist humidifier to add humidity to the air in your home. This can make it easier to breathe. ? When using a cool mist humidifier, clean it daily. Empty the water and replace it with clean water. ? Cover your mouth and nose when you cough or sneeze. ? Wash your hands with soap and water often and for at least 20 seconds, especially after you cough or sneeze. If soap and water are not available, use alcohol-based hand hoisting engine operator. ? Keep all follow-up visits. This is important. How is this prevented? Get an annual flu shot. This is usually available in late summer, fall, or winter. Ask your health care provider when you should get your flu shot. ? Avoid contact with people who are sick during cold and flu season. This is generally fall and winter. Contact a health care provider if: ? You develop new symptoms. ? You have: ? Chest pain. ? Diarrhea. ? A fever. ? Your cough gets worse. ? You produce more mucus. ? You feel nauseous or you vomit. Get help right away if you: ? Develop shortness of breath or have difficulty breathing. ? Have skin or nails that turn a bluish color. ? Have severe pain or stiffness in your neck. ? Develop a sudden headache or sudden pain in your face or ear. ? Cannot eat or drink without vomiting. These symptoms may represent a serious problem that is an emergency. Do not wait to see if the symptoms will go away. Get medical help right away. Call your local emergency services (911 in the [place] Do not drive yourself to the hospital. Summary ? Influenza, also called the flu, is a viral infection that primarily affects your respiratory tract. ? Symptoms of the flu usually begin suddenly and last 4???14 days. ? Getting an annual flu shot is the best way to prevent getting the flu. ? Stay home from work or school as told by your health care provider. Unless you are visiting your health care provider, avoid leaving home until your fever has been gone for 24 hours without taking medicine. ? Keep all follow-up visits. This is important. This information is not intended to replace advice given to you by your health care provider. Make sure you discuss any questions you have with your health care provider. Document Revised: 11/15/2020 Document Reviewed: 11/15/2020 [employer] Patient Education ?? 2021 [employer] Patient/Smooth Stucco Resurfacer Signature Patient Name:TERESA CLOUD Marisabel I have received this information and my questions have been answered. Patient/Smooth Stucco Resurfacer Name: Patient/Smooth Stucco Resurfacer Signature: Relationship to Patient: Witness Name/Signature: Date: Electronically Signed on: 04/09/2022 13:29 ESTSigned by:[facility]
--- OUTSIDE RECORDS SUMMARY | 2022-06-30 14:00 | XMS_ITS | Continuity of Care Document ---
Author Name Unknown Organization [facility] Ambulatory Clinics Address [address] [place] [address] Care Team Providers Care Respite Provider Name Role Phone CAYLA FLOOD Primary Care Physician [phone] Encounter [facility] NBR [id number] Date(s): 06/26/22 - 06/26/22 [facility] Ambulatory Clinics [address], [place] [address] Encounter Diagnosis Irregular menses(Discharge Diagnosis) - 06/26/22 test positive(Discharge Diagnosis) - 06/26/22 Discharge Disposition: Home or Self Care Attending Physician: Chris Barrera Allergies, Adverse Reactions, Alerts Substance Reaction Severity Status aspirin Hives Breathing abnormal Severe Active Assessment and Plan Future Appointments Future Scheduled Tests Laboratory* Beta hCG Quantitative 06/26/22 Functional Status 06/26/22 Other exposure to Infectious Disease Non e Medications 19 ([facility]) oral tablet, chewable 2 gummies, Chewed, Daily, 0 Refill(s) Start Date: 06/26/22 Status: Ordered Problem List Condition Confirmation Course Effective Dates Status Health St [facility] Informant Anxiety Confirmed Active Benign essential hypertension Confirmed Active History of gestational diabetes Confirmed 02/19/20 Active Personal history of COVID-19 Confirmed 04/07/22 Active Influenza A Confirmed Active Rh negative, maternal Confirmed Active Procedures Procedure Date Related Diagnosis Body Site Status Oral surgery 1 Completed 1wisdom teeth x 4 Results Laboratory List Name Date Urine Qual POCT 06/26/22 Most recent to oldest [Reference Range]: 1 U Preg POCT [Negative] Positive *ABN* (06/26/22 1:19 PM) Vital Signs Most recent to oldest [Reference Range]: 1 Blood Pressure [90-140/60-90 mmHg] 132/6 4mmHg (06/26/22 1:02 PM) Weight 91.0 kg (06/26/22 1:02 PM) Weight Measured (lbs) 200.62 lb (06/26/22 1:02 PM) [place] Body Weight Calculated 63.248 kg (06/26/22 1:02 PM) Height 172 cm (06/26/22 1:02 PM) Height/Length Measured (inches) 67.72 in (06/26/22 1:02 PM) BSA Measured 2.09 m2 (06/26/22 1:02 PM) Body Mass Index 30.76 kg/m2 (06/26/22 1:02 PM) Social History Social History Type Response Smoking Status Smoking tobacco use: Current everyday tobacco user;Never; Number used per day: 1 ppd; Started at age: 16.0; entered on: 06/26/22 Sex Physician Outpatient Note * Chris Barrera: PERFORM Event Display: Office Clinic Note Physician Authored Date: [id number] TERESA CLOUD :1990 Age:32 years Sex:Female Visit Date:06/26/2022 Primary Care Physician: CAYLA FLOOD Chief Complaint confirmation, LMP 05/31/2022 Additional Information symptoms: nausea History of Present Illness 32yo 041, LMP- 05/31/2022 The patient is here today for confirmation of .?? She reports having a Positive??pregnancytest at home.?? Her menstrual cycles are regular every 26??to 29 days.?? She relays history of an early miscarriage 1 month ago.?At that time, her first positive test was 05/24.??On 05/29 she had spotting, and??went to [facility] ER. The beta-hCG was 12. Two days later the??bleeding was heavier and repeat HCG was 0. She is O neg, but did not get Rhogam. ??She had??light brown??vaginal spotting 2 days ago, but no??menstrual bleeding or cramping. Review of Systems Constitutional: No fevers, chills, sweats, no weight loss, no weight gain Eye: No new visual problems Respiratory: No shortness of breath, cough Cardiovascular: No chest pain, palpitations, syncope Gastrointestinal: No nausea, vomiting, diarrhea Genitourinary: No blood in urine, no urinary urgency, frequency, leakage, no painful urination, no difficulty urinating Auditor: No unexpected vaginal bleeding, odor, discharge, no vulvar itching, pain Heme/Lymph: Negative for bruising tendency, swollen lymph glands Endocrine: Negative for cold intolerance, new unexpected hair growth Skin: No bruises, abrasions Psychiatric: No anxiety, depression Physical Exam Vitals & Measurements BP:??132/64?? HT:??172??cm?? WT:??91.0??kg?? BMI:??30.76?? BSA:??2.09?? General: Alert and oriented, well nourished, no acute distress Eye: Pupils equal, EOMI HEENT: Normocephalic, grossly normal hearing, moist oral mucosa, no scleral icterus Neck: Supple, no thyroid enlargement, no lymphadenopathy Lungs: Clear to auscultation, non-labored respiration Heart: Normal rate, regular rhythm, no murmurs Abdomen: Soft, non-tender, non-distended, no masses Musculoskeletal: Grossly normal range of motion and strength, no tenderness or swelling Skin: Skin is warm, dry, no rashes Neurologic: Awake, alert, and oriented X4 Psychiatric: Cooperative, appropriate mood and affect Assessment/Plan 1.??Irregular menses??N92.6 Ordered: Beta hCG Quantitative, Blood, Routine, 06/29/22, Once, Lab Collect, Irregular menses test positive, Order for future visit Beta hCG Quantitative, Blood, Routine, 06/26/22, Once, Lab Collect, Irregular menses test positive, Order for future visit Urine Test Clinic POC (RE), 06/26/22 13:01:00 EDT, Irregular menses, 06/26/22 13:01:00 EDT ?? 2.?? test positive??Z32.01 Ordered: Beta hCG Quantitative, Blood, Routine, 06/29/22, Once, Lab Collect, Irregular menses test positive, Order for future visit Beta hCG Quantitative, Blood, Routine, 06/26/22, Once, Lab Collect, Irregular menses test positive, Order for future visit ?? I reviewed how pregnancies are dated--best by a monthly cycle, or a first trimester US. After reviewing her history and orienting to the practice, I reviewed that the patient should start the vitamin or 800 mcg of folic acid and avoid chemical exposures where possible. I also reviewed thatit is recommended she avoid caffeine, nicotine, and alcohol. Small frequent meals, B6 and elina may also be helpful to reduce 1st trimester nausea. If vomiting occurs, the BRAT diet should be followed-bananas, rice, applesauce and toast, and call if things do not improve. It is best to avoid medications in . A New OB visit will be scheduled between 10-12 weeks to review specific details and education surrounding the , standard lab work, and optional screenings. I encouraged her to call with any questions or concerns in the meantime. Future Orders Beta hCG Quantitative, Blood, Routine, 06/29/22, Once, Lab Collect, Irregular menses test positive, Order for future visit Beta hCG Quantitative, Blood, Routine, 06/26/22, Once, Lab Collect, Irregular menses test positive, Order for future visit Problem List/Past Medical History Ongoing Anxiety Benign essential hypertension History of gestational diabetes Influenza A Personal history of COVID-19 Rh negative, maternal Historical Disease caused by 2019 novel coronavirus Procedure/Surgical History ???Oral surgery Medications 19 ([facility]) oral tablet, chewable, 2 gummies, Chewed, Daily Allergies aspirin??(Hives, Breathing abnormal) Social History Alcohol Never Electronic Cigarette/Vaping Electronic Cigarette Use: Never. Employment/School [employer], Work/School description: [employer] in [place]. Home/Environment Lives with Children, Significant other. Living situation: Home/Independent. Sexual Sexually active: Yes. Substance Use Never Tobacco Current everyday tobacco user Tobacco Use:. 1 ppd per day. Started age 16.0 Years. Never Smokeless Tobacco use:. Family History Heart attack: Father. Other: Mother. Family Member(s): ?? FATHER, at age: Unknown. Cause of : Lab Results Test Name Test Result Date/Time U Preg POCT Positive 06/26/2022 13:19 EDT Electronically Signed on 06/26/22 01:51 PM Chris Barrera Patient Care team information Care Team Personnel Name: CAYLA FLOOD Position: No Access Member Role: Primary Care Physician Address: Address: [address] [place] [address] [place], [place] [address] Care Team Related Persons Name: TRINO RAMÍREZ Name: TAMERA ADAMS Address: [address] [id number] [facility]
--- OUTSIDE RECORDS SUMMARY | 2022-06-30 14:00 | XMS_ITS | Continuity of Care Document ---
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 Name Role Phone CAYLA MATTHEWS Primary Care Physician Encounter [facility] NBR [id number] Date(s): 04/18/22 - 04/18/[address] [phone] [phone] Encounter Diagnosis Postconcussive syndrome(Discharge Diagnosis) - 04/18/22 Discharge Disposition: Home or Self Care Attending Physician: Zoltan Alvarenga DO Admitting Physician: Zoltan Alvarenga DO Allergies, Adverse Reactions, Alerts Substance Reaction Severity Status aspirin Severe Active Functional Status 04/18/22 Other exposure to Infectious Disease Non e Mental Status 04/18/22 Eye Opening Response Henriette Spontaneous ly Best Verbal Response Henriette Oriented Best Motor Response Abebe Obeys comman ds Abebe Coma Score 15 Problem List Condition Confirmation Course Effective Dates Status Health [facility] Informant Disease caused by 2019 novel coronavirus 1 Confirmed 04/07/22 Active Influenza A Confirmed Active 1Problem added by Rule (IC_COVID19_AUTO_PROBLEM) following SARS-CoV-2 (COVID-19) Antigen (Binax) POCT from Nasal Swab collected on 07-APR-2022 17:03:00 EST tested positive for COVID-19. Results Radiology Reports * Exam Date Time Procedure Performing Provider Status 04/18/22 6:[address] Head w/o Contrast Nanda Morejon [facility] (Verified) Notes: (CT Head w/o Contrast) Reason For Exam: headache CT Head w/o Contrast PROCEDURE INFORMATION: Exam: CT Head Without Contrast Exam date and time: 04/18/2022 6:31 PM Age: 31 years old Clinical indication: Pain; Headache TECHNIQUE: Imaging protocol: Computed tomography of the head without contrast. Radiation optimization: All CT scans at this facility use at least one of these dose optimization techniques: automated exposure control; mA and/or kV adjustment per patient size (includes targeted exams where dose is matched to clinical indication); or iterative reconstruction. COMPARISON: CT HEAD WO CONTRAST 12/28/2021 3:32 PM FINDINGS: Brain: No hemorrhage. Unremarkable white matter. No mass effect. Cerebral ventricles: No ventriculomegaly. Paranasal sinuses: Left frontal and left ethmoid sinusitis. Mastoid air cells: Visualized mastoid air cells are well aerated. Bones/joints: No acute fracture. Normal-variant incomplete fusion of the C1 posterior arch. Soft tissues: Unremarkable. IMPRESSION: No acute intracranial findings. No acute change compared to 12/28/2021. THIS DOCUMENT HAS BEEN ELECTRONICALLY SIGNED BY SUKHI OLIVIA MD on 04/18/2022 07:12 PM Final Signed by: Sukhi Olivia MD Signed (Electronic Signature): 04/18/2022 7:12 pm Vital Signs Most recent to oldest [Reference Range]: 1 Temperature Temporal Artery [36-38 Deg C ] 36.7 Deg C (04/18/22 5:50 PM) Peripheral Pulse Rate [60-100 bpm] 100 b pm (04/18/22 5:50 PM) Respiratory Rate [12-24 br/min] 18 br/mi n (04/18/22 5:50 PM) Blood Pressure [90-140/60-90 mmHg] 131/9 0mmHg (04/18/22 5:50 PM) Weight Dosing 85.00 kg (04/18/22 6:01 PM) Weight Estimated 85.00 kg (04/18/22 5:50 PM) Height/Length Dosing 170.000 cm (04/18/22 6:01 PM) Height/Length Estimated 170.000 cm (04/18/22 5:50 PM) Social History Social History Type Response Tobacco Current everyday tob acco user Tobacco Use:. 1 ppd per day. Sex Hospital Discharge Instructions Patient Education 04/18/2022 18:21:13 Post-Concussion Syndrome Post-Concussion Syndrome A concussion is a brain injury from a direct hit to the head or body. This hit causes the brain to shake quickly back and forth inside the skull. This can damage brain cells and cause chemical changes in the brain. Concussions are usually not life-threatening but can cause serious symptoms. Post-concussion syndrome is when symptoms that occur after a concussion last longer than normal. These symptoms can last from weeks to months. What are the causes? The cause of this condition is not known. It can happen whether your head injury was mild or severe. What increases the risk? You are more likely to develop this condition if: ??? You are female. ??? You are a child, teen, or young adult. ??? You have had a past head injury. ??? You have a history of headaches. ??? You have depression or anxiety. ??? You have loss of consciousness or cannot remember the event (have amnesia of the event). ??? You have multiple symptoms or severe symptoms at the time of your concussion. What are the signs or symptoms? Symptoms of this condition include: ??? Physical symptoms. You may have: ??? Headaches. ??? Tiredness. ??? Dizziness and weakness. ??? Blurry vision and sensitivity to light. ??? Hearing difficulties. ??? Problems with balance. ??? Mental and emotional symptoms. You may have: ??? Memory problems and trouble concentrating. ??? Difficulty sleeping or staying asleep. ??? Feelings of irritability. ??? Anxiety or depression. ??? Difficulty learning new things. How is this diagnosed? This condition may be diagnosed based on: ??? Your symptoms. ??? A description of your injury. ??? Your medical history. ??? Testing your strength, balance, and nerve function (neurological examination). Your health care provider may order other tests, including brain imaging such as a CT scan or an MRI, and memory testing (neuropsychological testing). How is this treated? Treatment for this condition may depend on your symptoms. Symptoms usually go away on their own over time. Treatments may include: ??? Medicines for headaches, anxiety, depression, and trouble sleeping (insomnia). ??? Resting your brain and body for a few days after your injury. ??? Rehabilitation therapy, such as: ??? Physical or occupational therapy. This may include exercises to help with balance and dizziness. ??? Mental health counseling. A form of talk therapy called cognitive behavioral therapy (CBT) can be especially helpful. This therapy helps you set goals and follow up on the changes that you make. ??? Speech therapy. ??? Vision therapy. A brain and duplication specialist can recommend treatments for vision problems. Follow these instructions at home: Medicines ??? Take aycc-mak-tbwgyqt and prescription medicines only as told by your health care provider. ??? Avoid opioid prescription pain medicines when recovering from a concussion. Activity ??? Limit your mental activities for the first few days after your injury. This may include not doing the following: ??? Homework or job-related work. ??? Complex thinking. ??? Watching TV, and using a computer or phone. ??? Playing memory games and puzzles. ??? Gradually return to your normal activity level. If a certain activity brings on your symptoms, stop or slow down until you can do the activity without it triggering your symptoms. ??? Limit physical activity, such as exercise or sports, for the first few days after a concussion.Gradually return to normal activity as told by your health care provider. ??? Rest. Rest helps your brain heal. Make sure you: ??? Get plenty of sleep at night. Most adults should get at least 7???9 hours of sleep each night. ??? Rest during the day. Take naps or rest breaks when you feel tired. ??? Do not do high-risk activities that could cause a second concussion, such as riding a bike or playing sports. Having another concussion before the first one has healed can be dangerous. General instructions ??? Do not drink alcohol until your health care provider says that you can. ??? Keep track of the frequency and the severity of your symptoms. Give this information to your health care provider. ??? Keep all follow-up visits as directed by your health care provider. This is important. This includes visits with specialists. Contact a health care provider if: ??? Your symptoms do not improve. ??? You have another injury. Get help right away if you: ??? Have a severe or worsening headache. ??? Are confused. ??? Have trouble staying awake. ??? Faint. ??? Vomit. ??? Have weakness or numbness in any part of your body. ??? Have a seizure. ??? Have trouble speaking. Summary ??? Post-concussion syndrome is when symptoms that occur after a concussion last longer than normal. ??? Symptoms usually go away on their own over time. Depending on your symptoms, you may need treatment, such as medicines or rehabilitation therapy. ??? Rest your brain and body for a few days after your injury. Gradually return to normal activities as told by your health care provider. ??? Get plenty of sleep, and avoid alcohol and opioid pain medicines while recovering from a concussion. This information is not intended to replace advice given to you by your health care provider. Make sure you discuss any questions you have with your health care provider. Document Revised: 06/12/2021 Document Reviewed: 06/12/2021 [employer] Patient Education ?? 2021 [employer]. Follow Up Care 04/18/2022 17:50:40 With:Follow-up with your primary care Address: When:1 week Comments:Follow-up with your primary care as needed, they will be able to reevaluate if necessaryReturn to ED if concerns Physician Emergency department Note * HEBER Choa: PERFORM Event Display: ED Note Physician Authored Date: [id number] TERESA CLOUD :1990 Age:31 years Sex:Female Visit Date:04/18/2022 Primary Care Physician: CAYLA MATTHEWS Basic Information Time Seen: HEBER Chao / 04/18/2022 18:12 Chief Complaint Pt reports she slipped and hit her head 1 week ago, no LOC, c/o headache. History Of Present Illness: Patient is a 31-year-old female who several days ago had a slip and fall injury??with head strike to her car. ??She notes that she was chasing after her son with??poor footwear and slipped on the ice.?? She at that time did not have any significant concerns but has developed headache over the last several days.?? She presents today with frontal headache??and some tension headache in the posterioraspect??there is concern for intracranial??pathology.?? She is not any nausea or vomiting has had no vision changes and has no fever. Review of Systems: See HPI Physical Exam Vitals & Measurements T:??36.7?C ??(Temporal Artery)?? HR:??100??(Peripheral)?? RR:??18?? BP:??131/90?? SpO2:??98%?? HT:??170.000??cm?? WT:??85.00??kg??(Estimated)?? O2 Therapy:??Room air?? Patient alert oriented age-appropriate well-nourished nontoxic Normocephalic atraumatic Neck supple nontender EOM intact, PERRLA, sclera nonicteric Clear to auscultation bilaterally Regular rate and rhythm no murmurs Abdominal exam reveals normal bowel sounds, negative rebound tenderness, negative psoas sign Normal gait and station, normal strength all extremities Neuro exam intact without focal deficit Appropriate mood and affect Medical Decision Making: Patient??has headache here post??head injury, CT is negative She is given Toradol??post CT evaluation I discussed with her that this is potentially a migraine headache and??to treat this probably will need IV IV fluids Compazine Benadryl??and potentially magnesium.?? At this time she does not feel that this is necessary and she is discharged with Compazine to see if it will help break the migraine.??She will follow with her primary care as below Procedure No Qualifying Data Assessment/Plan 1.??Postconcussive syndrome??F07.81 Patient be discharged with Compazine I discussed with her the fact that she could??have a postconcussive symptoms??or a atypical migraine headache for her. ??I do not feel that with a normal CT that any further evaluation is necessary. ??I have informed her that she should limit her activities and??limit her blue screen time??to as tolerated. ??She understands all aspects of today's visit and agrees with discharge Orders: Discharge Patient, 04/18/22 19:19:00 EST Patient Education Post-Concussion Syndrome Follow Up With When Contact Information Follow-up with your primary care Within 1 week Additional Instructions: Follow-up with your primary care as needed, they will be able to reevaluate if necessary Return to ED if concerns Problem List/Past Medical History Ongoing Disease caused by 2019 novel coronavirus Influenza A Historical No qualifying data Medication Administration Given Toradol, 30 mg, IM Allergies aspirin Social History Electronic Cigarette/Vaping Electronic Cigarette Use: Never. Tobacco Current everyday tobacco user Tobacco Use:. 1 ppd per day. Diagnostic Results CT Head w/o Contrast 04/18/2022 19:[address] Head w/o Contrast ?? 04/18/22 18:31:48 PROCEDURE INFORMATION: Exam: CT Head Without Contrast Exam date and time: 04/18/2022 6:31 PM Age: 31 years old Clinical indication: Pain; Headache ?? TECHNIQUE: Imaging protocol: Computed tomography of the head without contrast. Radiation optimization: All CT scans at this facility use at least one of these dose optimization techniques: automated exposure control; mA and/or kV adjustment per patient size (includes targeted exams where dose is matched to clinical indication); or iterative reconstruction. ?? COMPARISON: CT HEAD WO CONTRAST 12/28/2021 3:32 PM ?? FINDINGS: Brain: No hemorrhage. Unremarkable white matter. No mass effect. Cerebral ventricles: No ventriculomegaly. Paranasal sinuses: Left frontal and left ethmoid sinusitis. Mastoid air cells: Visualized mastoid air cells are well aerated. Bones/joints: No acute fracture. Normal-variant incomplete fusion of the C1 posterior arch. Soft tissues: Unremarkable. ?? IMPRESSION: No acute intracranial findings. No acute change compared to 12/28/2021. ? THIS DOCUMENT HAS BEEN ELECTRONICALLY SIGNED BY SUKHI OLIVIA MD on 04/18/2022 07:12 PM ?? Signed By: Sukhi Olivia MD Electronically Signed on 04/18/22 09:51 PM HEBER Chao Emergency department Discharge instructions * HEBER Chao: PERFORM Event Display: ED Discharge Information Authored Date: [id number] TERESA CLOUD :1990 Age:31 years Sex:Female Visit Date:04/18/2022 Primary Care Physician: CAYLA MATTHEWS Discharge Instructions We would like to thank you for allowing us to assist you with your healthcare needs. The following includes patient education materials and information regarding your injury/illness. Diagnosis from Today's Visit Postconcussive syndrome Discharge Vitals Temperature??(Temporal Artery) 98.1 ??F (36.7 ??C) Heart Rate??(Peripheral) 100 Respiratory Rate?? 18 Blood Pressure?? 131/90?? Height?? 66.93 in (170.000 cm) Weight??(Estimated) 187.42 lb (85.00 kg) Allergies aspirin What to Do Next You Need to Schedule the Following Appointments Follow Up with??Follow-up with your primary care When:??Within 1 week Why: Follow-up with your primary care as needed, they will be able to reevaluate if necessary Return to ED if concerns You were treated today on an emergency basis; it may be duarte to contact your primary care provider to notify them of your visit today. You may have been referred to your regular doctor or a specialist, please follow up as instructed. If your condition worsens or you can't get in to see the doctor, contact the Emergency Department. Education Materials Post-Concussion Syndrome A concussion is a brain injury from a direct hit to the head or body. This hit causes the brain to shake quickly back and forth inside the skull. This can damage brain cells and cause chemical changes in the brain. Concussions are usually not life-threatening but can cause serious symptoms. Post-concussion syndrome is when symptoms that occur after a concussion last longer than normal. These symptoms can last from weeks to months. What are the causes? The cause of this condition is not known. It can happen whether your head injury was mild or severe. What increases the risk? You are more likely to develop this condition if: ? You are female. ? You are a child, teen, or young adult. ? You have had a past head injury. ? You have a history of headaches. ? You have depression or anxiety. ? You have loss of consciousness or cannot remember the event (have amnesia of the event). ? You have multiple symptoms or severe symptoms at the time of your concussion. What are the signs or symptoms? Symptoms of this condition include: ? Physical symptoms. You may have: ? Headaches. ? Tiredness. ? Dizziness and weakness. ? Blurry vision and sensitivity to light. ? Hearing difficulties. ? Problems with balance. ? Mental and emotional symptoms. You may have: ? Memory problems and trouble concentrating. ? Difficulty sleeping or staying asleep. ? Feelings of irritability. ? Anxiety or depression. ? Difficulty learning new things. How is this diagnosed? This condition may be diagnosed based on: ? Your symptoms. ? A description of your injury. ? Your medical history. ? Testing your strength, balance, and nerve function (neurological examination). Your health care provider may order other tests, including brain imaging such as a CT scan or an MRI, and memory testing (neuropsychological testing). How is this treated? Treatment for this condition may depend on your symptoms. Symptoms usually go away on their own over time. Treatments may include: ? Medicines for headaches, anxiety, depression, and trouble sleeping (insomnia). ? Resting your brain and body for a few days after your injury. ? Rehabilitation therapy, such as: ? Physical or occupational therapy. This may include exercises to help with balance and dizziness. ? Mental health counseling. A form of talk therapy called cognitive behavioral therapy (CBT) can be especially helpful. This therapy helps you set goals and follow up on the changes that you make. ? Speech therapy. ? Vision therapy. A brain and duplication specialist can recommend treatments for vision problems. Follow these instructions at home: Medicines ? Take [id number]-[id number] and prescription medicines only as told by your health care provider. ? Avoid opioid prescription pain medicines when recovering from a concussion. Activity ? Limit your mental activities for the first few days after your injury. This may include not doing the following: ? Homework or job-related work. ? Complex thinking. ? Watching TV, and using a computer or phone. ? Playing memory games and puzzles. ? Gradually return to your normal activity level. If a certain activity brings on your symptoms, stopor slow down until you can do the activity without it triggering your symptoms. ? Limit physical activity, such as exercise or sports, for the first few days after a concussion. Gradually return to normal activity as told by your health care provider. ? Rest. Rest helps your brain heal. Make sure you: ? Get plenty of sleep at night. Most adults should get at least 7???9 hours of sleep each night. ? Rest during the day. Take naps or rest breaks when you feel tired. ? Do not do high-risk activities that could cause a second concussion, such as riding a bike or playing sports. Having another concussion before the first one has healed can be dangerous. General instructions ? Do not drink alcohol until your health care provider says that you can. ? Keep track of the frequency and the severity of your symptoms. Give this information to your healthcare provider. ? Keep all follow-up visits as directed by your health care provider. This is important. This includes visits with specialists. Contact a health care provider if: ? Your symptoms do not improve. ? You have another injury. Get help right away if you: ? Have a severe or worsening headache. ? Are confused. ? Have trouble staying awake. ? Faint. ? Vomit. ? Have weakness or numbness in any part of your body. ? Have a seizure. ? Have trouble speaking. Summary ? Post-concussion syndrome is when symptoms that occur after a concussion last longer than normal. ? Symptoms usually go away on their own over time. Depending on your symptoms, you may need treatment, such as medicines or rehabilitation therapy. ? Rest your brain and body for a few days after your injury. Gradually return to normal activities astold by your health care provider. ? Get plenty of sleep, and avoid alcohol and opioid pain medicines while recovering from a concussion. This information is not intended to replace advice given to you by your health care provider. Make sure you discuss any questions you have with your health care provider. Document Revised: 06/12/2021 Document Reviewed: 06/12/2021 Else[employer] Patient Education ?? 2021 [employer] Tests Performed Radiology CT Head w/o Contrast 04/18/2022 19:12 EST Medications and Immunizations Administered Given Toradol, 30 mg, IM Patient/[employer] Signature Patient Name:TERESA CLOUD I have received this information and my questions have been answered. Patient/[employer] Name: Patient/[employer] Signature: Relationship to Patient: Witness Name/Signature: Date: Electronically Signed on: 04/18/2022 19:21 ESTSigned by:AB CT Head WO contrast * Sukhi Olivia MD: VERIFY, VERIFY Event Display: Report PROCEDURE INFORMATION: Exam: CT Head Without Contrast Exam date and time: 04/18/2022 6:31 PM Age: 31 years old Clinical indication: Pain; Headache TECHNIQUE: Imaging protocol: Computed tomography of the head without contrast. Radiation optimization: All CT scans at this facility use at least one of these dose optimization techniques: automated exposure control; mA and/or kV adjustment per patient size (includes targeted exams where dose is matched to clinical indication); or iterative reconstruction. COMPARISON: CT HEAD WO CONTRAST 12/28/2021 3:32 PM FINDINGS: Brain: No hemorrhage. Unremarkable white matter. No mass effect. Cerebral ventricles: No ventriculomegaly. Paranasal sinuses: Left frontal and left ethmoid sinusitis. Mastoid air cells: Visualized mastoid air cells are well aerated. Bones/joints: No acute fracture. Normal-variant incomplete fusion of the C1 posterior arch. Soft tissues: Unremarkable. IMPRESSION: No acute intracranial findings. No acute change compared to 12/28/2021. THIS DOCUMENT HAS BEEN ELECTRONICALLY SIGNED BY SUKHI OLIVIA MD on 04/18/2022 07:12 PM Final Signed by: Sukhi Olivia MD Signed (Electronic Signature): 04/18/2022 7:12 pm Patient Care team information Personnel Name: CAYLA MATTHEWS Address: Address: [address] [place] [address] [place], [place] [address]
--- OUTSIDE RECORDS SUMMARY | 2022-06-30 14:00 | XMS_ITS | Continuity of Care Document ---
Author Name Unknown Organization [facility] Address [address] [place] [id number] Encounter [facility] FIN NBR [id number] Date(s): 03/11/22 - 03/11/[address] [address] [place] Encounter Diagnosis Acute URI(Discharge Diagnosis) - 03/11/22 Discharge Disposition: Home or Self Care Attending Physician: Candace Cabrera MD Admitting Physician: Candace Cabrera MD Allergies, Adverse Reactions, Alerts Substance Reaction Severity Status aspirin Severe Active Functional Status 03/11/22 Other exposure to Infectious Disease Com munity exposure to COVID-19 within the last 14 days, COVID-19 Symptoms Present Medications No Known Medications Results Laboratory List Name Date SARS-CoV-2 (COVID-19) PCR (GeneXpert) SARS-CoV-2 (Covid-19) AG (Genny) POCT Most recent to oldest [Reference Range]: 1 2 SARS-CoV-2 (COVID-19) PCR (G eneXpert) [Negative] Negative (03/11/22 5:40 PM) SARS-CoV or CoV-2 (COVID-19) Ag (Genny) [Negative] Negative (03/11/22 5:27 PM) Employed in healthcare? No *NA* (03/11/22 5:40 PM) Unknown *NA* (03/11/22 5:27 PM) Symptomatic as defined by CDC? No *NA* (03/11/22 5:40 PM) Unknown *NA* (03/11/22 5:27 PM) Date of onset (Lab) Unknown *NA* (03/11/22 5:27 PM) Hospitalized due to COVID-19? No *NA* (03/11/22 5:40 PM) Unknown *NA* (03/11/22 5:27 PM) In ICU? No *NA* (03/11/22 5:40 PM) Unknown *NA* (03/11/22 5:27 PM) Group care resident? No *NA* (03/11/22 5:40 PM) Unknown *NA* (03/11/22 5:27 PM) status? Unknown *NA* (03/11/22 5:40 PM) Unknown *NA* (03/11/22 5:27 PM) Vital Signs Most recent to oldest [Reference Range]: 1 Temperature Temporal Artery [36-38 Deg C ] 37.0 Deg C (03/11/22 4:19 PM) Peripheral Pulse Rate [60-100 bpm] 86 bp m (03/11/22 4:19 PM) Respiratory Rate [12-24 br/min] 18 br/mi n (03/11/22 4:19 PM) Blood Pressure [90-140/60-90 mmHg] 119/9 1mmHg (03/11/22 4:19 PM) Weight Dosing 87.09 kg (03/11/22 5:04 PM) Weight Estimated 87.09 kg (03/11/22 4:19 PM) Height/Length Dosing 170.000 cm (03/11/22 5:04 PM) Height/Length Estimated 170.000 cm (03/11/22 4:19 PM) Social History Social History Type Response Tobacco Current everyday tob acco user Tobacco Use:. 1/2 ppd per day. Sex Hospital Discharge Instructions Patient Education 03/11/2022 16:28:35 Upper Respiratory Infection, Adult Upper Respiratory Infection, Adult An upper respiratory infection (URI) is a common viral infection of the nose, throat, and upper airpassages that lead to the lungs. The most common type of URI is the common cold. URIs usually get better on their own, without medical treatment. What are the causes? A URI is caused by a virus. You may catch a virus by: ??? Breathing in droplets from an infected person's cough or sneeze. ??? Touching something that has been exposed to the virus (contaminated) and then touching your mouth, nose, or eyes. What increases the risk? You are more likely to get a URI if: ??? You are very young or very old. ??? It is gorge or winter. ??? You have close contact with others, such as at a daycare, school, or health care facility. ??? You smoke. ??? You have long-term (chronic) heart or lung disease. ??? You have a weakened disease-fighting (immune) system. ??? You have nasal allergies or asthma. ??? You are experiencing a lot of stress. ??? You work in an area that has poor air circulation. ??? You have poor nutrition. What are the signs or symptoms? A URI usually involves some of the following symptoms: ??? Runny or stuffy (congested) nose. ??? Sneezing. ??? Cough. ??? Sore throat. ??? Headache. ??? Fatigue. ??? Fever. ??? Loss of appetite. ??? Pain in your forehead, behind your eyes, and over your cheekbones (sinus pain). ??? Muscle aches. ??? Redness or irritation of the eyes. ??? Pressure in the ears or face. How is this diagnosed? This condition may be diagnosed based on your medical history and symptoms, and a physical exam. Your health care provider may use a cotton swab to take a mucus sample from your nose (nasal swab). This sample can be tested to determine what virus is causing the illness. How is this treated? URIs usually get better on their own within 7???10 days. You can take steps at home to relieve yoursymptoms. Medicines cannot cure URIs, but your health care provider may recommend certain medicinesto help relieve symptoms, such as: ??? Hlkd-gjj-ohkelyq cold medicines. ??? Cough suppressants. Coughing is a type of defense against infection that helps to clear the respiratory system, so take these medicines only as recommended by your health care provider. ??? Fever-reducing medicines. Follow these instructions at home: Activity ??? Rest as needed. ??? If you have a fever, stay home from work or school until your fever is gone or until your health care provider says you are no longer contagious. Your health care provider may have you wear a face mask to prevent your infection from spreading. Relieving symptoms ??? Gargle with a salt-water mixture 3???4 times a day or as needed. To make a salt-water mixture, completely dissolve ?1 tsp of salt in 1 cup of warm water. ??? Use a cool-mist humidifier to add moisture to the air. This can help you breathe more easily. Eating and drinking ??? Drink enough fluid to keep your urine pale yellow. ??? Eat soups and other clear broths. General instructions ??? Take ubxp-fgj-vyrnwab and prescription medicines only as told by your health care provider. These include cold medicines, fever reducers, and cough suppressants. ??? Do not use any products that contain nicotine or tobacco, such as cigarettes and e-cigarettes. If you need help quitting, ask your health care provider. ??? Stay away from secondhand smoke. ??? Stay up to date on all immunizations, including the yearly (annual) flu vaccine. ??? Keep all follow-up visits as told by your health care provider. This is important. How to prevent the spread of infection to others ??? URIs can be passed from person to person (are contagious). To prevent the infection from spreading: ??? Wash your hands often with soap and water. If soap and water are not available, use hand news reporter. ??? Avoid touching your mouth, face, eyes, or nose. ??? Cough or sneeze into a tissue or your sleeve or elbow instead of into your hand or into the air. Contact a health care provider if: ??? You are getting worse instead of better. ??? You have a fever or chills. ??? Your mucus is brown or red. ??? You have yellow or brown discharge coming from your nose. ??? You have pain in your face, especially when you bend forward. ??? You have swollen neck glands. ??? You have pain while swallowing. ??? You have white areas in the back of your throat. Get help right away if: ??? You have shortness of breath that gets worse. ??? You have severe or persistent: ??? Headache. ??? Ear pain. ??? Sinus pain. ??? Chest pain. ??? You have chronic lung disease along with any of the following: ??? Wheezing. ??? Prolonged cough. ??? Coughing up blood. ??? A change in your usual mucus. ??? You have a stiff neck. ??? You have changes in your: ??? Vision. ??? Hearing. ??? Thinking. ??? Mood. Summary ??? An upper respiratory infection (URI) is a common infection of the nose, throat, and upper air passages that lead to the lungs. ??? A URI is caused by a virus. ??? URIs usually get better on their own within 7???10 days. ??? Medicines cannot cure URIs, but your health care provider may recommend certain medicines to help relieve symptoms. This information is not intended to replace advice given to you by your health care provider. Make sure you discuss any questions you have with your health care provider. Document Revised: 12/05/2020 Document Reviewed: 12/05/2020 GLSS Patient Education ?? 2021 [employer]. Physician Emergency department Note * HEBER Chao: PERFORM Event Display: ED Note Physician Authored Date: [id number] TERESA CLOUD :1990 Age:31 years Sex:Female Visit Date:03/11/2022 Basic Information Time Seen: HEBER Chao / 03/11/2022 16:32 Chief Complaint Cough and stuffy nose, COVID + househould. History Of Present Illness: Patient is a 4-year-old female presents emergency department 3 days of??nasal congestion, cough and??fatigue.?? She notes that she has COVID within her household and??is fearful that she has contracted Patient has had a cough for several weeks??but notes that the??above-mentioned symptoms are new??and is here for evaluation. ??She has no distress has no fevers and has taken no medications prior to arrival Review of Systems: Constitutional: [ No fevers, ??No chills, ??No sweats] Eye: ??[No recent visual problems] ENT:??See HPI Respiratory: ??[No shortness of breath, ??No cough] Cardiovascular: ??[No Chest pain, ??No palpitations, ??No syncope] Musculoskeletal: [No back pain, No neck pain, No joint pain, No muscle pain, No decreased range of motion] Integumentary: [No rash, ??No pruritus, ??No abrasions] Neurologic: [Alert & oriented X 4] Psychiatric: ??[No anxiety, ??No depression] Physical Exam Vitals & Measurements T:??37.0?C ??(Temporal Artery)?? HR:??86??(Peripheral)?? RR:??18?? BP:??119/91?? SpO2:??100%?? HT:??170.000??cm?? WT:??87.09??kg??(Estimated)?? Alert oriented age-appropriate nontoxic Neck supple EOM intact Regular rate and rhythm Clear to auscultation without wheeze rales crackles Skin is warm and dry Medical Decision Making: Patient had??symptoms and COVID in the household. ??For this reason PCR is obtained Donna was ultimately negative, PCR ultimately negative she is??discussed this via telephone??and we will continue to monitor symptoms. ??Patient will be discharged Procedure No Qualifying Data Assessment/Plan 1.??Acute URI??J06.9 Patient is discharged she will at this time continue supportive care and will return if necessary she will follow with her primary care for any further interventions. Orders: Discharge Patient, 03/11/22 17:28:00 EST Patient Education Upper Respiratory Infection, Adult Problem List/Past Medical History Ongoing No qualifying data Historical No qualifying data Allergies aspirin Social History Electronic Cigarette/Vaping Electronic Cigarette Use: Never. Tobacco Current everyday tobacco user Tobacco Use:. 1/2 ppd per day. Lab Results Infectious Disease?? LATEST RESULTS?? SARS-CoV-2 (COVID-19) PCR (GeneXpert)?? 03/11/22 17:40?? Negative?? SARS-CoV or CoV-2 (COVID-19) Ag (Genny)?? 03/11/22 17:27?? Negative?? Employed in healthcare??? 03/11/22 17:40?? No?? Symptomatic as defined by CDC??? 03/11/22 17:40?? No?? Date of onset (Lab)?? 03/11/22 17:27?? Unknown?? Hospitalized due to COVID-19??? 03/11/22 17:40?? No?? In ICU??? 03/11/22 17:40?? No?? Group care resident??? 03/11/22 17:40?? No?? status??? 03/11/22 17:40?? Unknown? Electronically Signed on 03/11/22 07:01 PM HEBER Chao Emergency department Discharge instructions * HEBER Chao: PERFORM Event Display: ED Discharge Information Authored Date: [id number] TERESA CLOUD :1990 Age:31 years Sex:Female Visit Date:03/11/2022 Discharge Instructions We would like to thank you for allowing us to assist you with your healthcare needs. The following includes patient education materials and information regarding your injury/illness. Diagnosis from Today's Visit Acute URI Discharge Vitals Temperature??(Temporal Artery) 98.6 ??F (37.0 ??C) Heart Rate??(Peripheral) 86 Respiratory Rate?? 18 Blood Pressure?? 119/91?? Height?? 66.93 in (170.000 cm) Weight??(Estimated) 192.03 lb (87.09 kg) Allergies aspirin What to Do Next Instructions from Your Care Team We will give you a PCR test today, we will call you with the results Continue supportive care??and we will discuss further treatment if necessary You were treated today on an emergency basis; it may be duarte to contact your primary care provider to notify them of your visit today. You may have been referred to your regular doctor or a specialist, please follow up as instructed. If your condition worsens or you can't get in to see the doctor, contact the Emergency Department. Education Materials Upper Respiratory Infection, Adult An upper respiratory infection (URI) is a common viral infection of the nose, throat, and upper airpassages that lead to the lungs. The most common type of URI is the common cold. URIs usually get better on their own, without medical treatment. What are the causes? A URI is caused by a virus. You may catch a virus by: ? Breathing in droplets from an infected person's cough or sneeze. ? Touching something that has been exposed to the virus (contaminated) and then touching your mouth, nose, or eyes. What increases the risk? You are more likely to get a URI if: ? You are very young or very old. ? It is gorge or winter. ? You have close contact with others, such as at a daycare, school, or health care facility. ? You smoke. ? You have long-term (chronic) heart or lung disease. ? You have a weakened disease-fighting (immune) system. ? You have nasal allergies or asthma. ? You are experiencing a lot of stress. ? You work in an area that has poor air circulation. ? You have poor nutrition. What are the signs or symptoms? A URI usually involves some of the following symptoms: ? Runny or stuffy (congested) nose. ? Sneezing. ? Cough. ? Sore throat. ? Headache. ? Fatigue. ? Fever. ? Loss of appetite. ? Pain in your forehead, behind your eyes, and over your cheekbones (sinus pain). ? Muscle aches. ? Redness or irritation of the eyes. ? Pressure in the ears or face. How is this diagnosed? This condition may be diagnosed based on your medical history and symptoms, and a physical exam. Your health care provider may use a cotton swab to take a mucus sample from your nose (nasal swab). This sample can be tested to determine what virus is causing the illness. How is this treated? URIs usually get better on their own within 7???10 days. You can take steps at home to relieve yoursymptoms. Medicines cannot cure URIs, but your health care provider may recommend certain medicinesto help relieve symptoms, such as: ? Updq-rbu-rlsttqs cold medicines. ? Cough suppressants. Coughing is a type of defense against infection that helps to clear the respiratory system, so take these medicines only as recommended by your health care provider. ? Fever-reducing medicines. Follow these instructions at home: Activity ? Rest as needed. ? If you have a fever, stay home from work or school until your fever is gone or until your health care provider says you are no longer contagious. Your health care provider may have you wear a face mask to prevent your infection from spreading. Relieving symptoms ? Gargle with a salt-water mixture 3???4 times a day or as needed. To make a salt- water mixture, completely dissolve ?1 tsp of salt in 1 cup of warm water. ? Use a cool-mist humidifier to add moisture to the air. This can help you breathe more easily. Eating and drinking ? Drink enough fluid to keep your urine pale yellow. ? Eat soups and other clear broths. General instructions ? Take ihvo-clm-wvnuvvn and prescription medicines only as told by your health care provider. These include cold medicines, fever reducers, and cough suppressants. ? Do not use any products that contain nicotine or tobacco, such as cigarettes and e-cigarettes. If you need help quitting, ask your health care provider. ? Stay away from secondhand smoke. ? Stay up to date on all immunizations, including the yearly (annual) flu vaccine. ? Keep all follow-up visits as told by your health care provider. This is important. How to prevent the spread of infection to others ? URIs can be passed from person to person (are contagious). To prevent the infection from spreading: ? Wash your hands often with soap and water. If soap and water are not available, use hand news reporter. ? Avoid touching your mouth, face, eyes, or nose. ? Cough or sneeze into a tissue or your sleeve or elbow instead of into your hand or into the air. Contact a health care provider if: ? You are getting worse instead of better. ? You have a fever or chills. ? Your mucus is brown or red. ? You have yellow or brown discharge coming from your nose. ? You have pain in your face, especially when you bend forward. ? You have swollen neck glands. ? You have pain while swallowing. ? You have white areas in the back of your throat. Get help right away if: ? You have shortness of breath that gets worse. ? You have severe or persistent: ? Headache. ? Ear pain. ? Sinus pain. ? Chest pain. ? You have chronic lung disease along with any of the following: ? Wheezing. ? Prolonged cough. ? Coughing up blood. ? A change in your usual mucus. ? You have a stiff neck. ? You have changes in your: ? Vision. ? Hearing. ? Thinking. ? Mood. Summary ? An upper respiratory infection (URI) is a common infection of the nose, throat, and upper air passages that lead to the lungs. ? A URI is caused by a virus. ? URIs usually get better on their own within 7???10 days. ? Medicines cannot cure URIs, but your health care provider may recommend certain medicines to help relieve symptoms. This information is not intended to replace advice given to you by your health care provider. Make sure you discuss any questions you have with your health care provider. Document Revised: 12/05/2020 Document Reviewed: 12/05/2020 [employer] Patient Education ?? 2021 [employer] Tests Performed Lab Test Name Test Result Date/Time SARS-CoV or CoV-2 (COVID-19) Ag (Genny) Negative 03/11/2022 17:27 EST Employed in healthcare? Unknown 03/11/2022 17:27 EST Symptomatic as defined by CDC? Unknown 03/11/2022 17:27 EST Date of onset (Lab) Unknown 03/11/2022 17:27 EST Hospitalized due to COVID-19? Unknown 03/11/2022 17:27 EST In ICU? Unknown 03/11/2022 17:27 EST Group care resident? Unknown 03/11/2022 17:27 EST status? 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 Patient/Fiscal Accounting Clerk Name: Patient/Fiscal Accounting Clerk Signature: Relationship to Patient: Witness Name/Signature: Date: Electronically Signed on: 03/11/2022 17:29 ESTSigned by:
--- OUTSIDE RECORDS SUMMARY | 2022-06-30 14:00 | XMS_ITS | Continuity of Care Document ---
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 Role Phone CAYLA FLOOD Primary Care Physician [phone] Encounter [facility] FIN NBR [id number] Date(s): 06/26/22 - 06/26/[address] [address]- [place] Discharge Disposition: Home or Self Care Attending Physician: Chris Barrera Admitting Physician: Chris Barrera Referring Physician: Chris Barrera Allergies, Adverse Reactions, Alerts Substance Reaction Severity Status aspirin Hives Breathing abnormal Severe Active Assessment and Plan Future Appointments Future Scheduled Tests Laboratory* Beta hCG Quantitative 06/26/22 Medications 19 ([place]) oral tablet, chewable 2 gummies, Chewed, Daily, [...] x 4 Results Laboratory List Name Date Beta hCG Quantitative 06/26/22 Most recent to oldest [Reference Range]: 1 Beta hCG Qnt [<=5.0 mIntlUnit/mL] 99.8 m IntlUnit/mL *HI* (06/26/22 1:53 PM) Social History Social History Type Response Smoking Status Smoking tobacco use: Current everyday tobacco user;Never; Number used per day: 1 ppd; Started at age: 16.0; entered on: 06/26/22 Sex Patient Care team information Care Team Personnel Name: CAYLA FLOOD Position: No Access Member Role: Primary Care Physician Address: Address: [address] [place] [address] [place] [address] Care Team Related Persons Name: TRINO RAMÍREZ Name: TAMERA ADAMS Address: [address] [id number] [facility]
--- OUTSIDE RECORDS SUMMARY | 2022-06-30 14:00 | XMS_ITS | Continuity of Care Document ---
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 NBR [id number] Date(s): 06/29/22 - 06/29/[address] [address]- Encounter Diagnosis Irregular menstruation, unspecified(Final) - Encounter for test, result positive(Final) - Discharge Disposition: Home or Self Care Attending Physician: Chris Barrera Admitting Physician: Chris Barrera Referring Physician: Chris Barrera Allergies, Adverse Reactions, Alerts Substance Reaction Severity Status aspirin Hives Breathing abnormal Severe Active Assessment and Plan Future Appointments Medications 19 ([place]) oral tablet, chewable 2 gummies, Chewed, Daily, [...] Laboratory List Name Date Beta hCG Quantitative 06/29/22 Most recent to oldest [Reference Range]: 1 Beta hCG Qnt [<=5.0 mIntlUnit/mL] 308.2 mIntlUnit/mL *HI* (06/29/22 9:05 AM) Social History Social History Type Response Smoking Status Smoking tobacco use: Current everyday tobacco user;Never; Number used per day: 1 ppd; Started at age: 16.0; entered on: 06/26/22 Sex Patient Care team information Care Team Personnel Name: CAYLA FLOOD Position: No Access Member Role: Primary Care Physician Address: Address: [address] [place] [address] [address] [place], [place] [address] Care Team Related Persons Name: TRINO RAMÍREZ Name: TAMERA ADAMS Address: [address] [phone] [facility]
--- OUTSIDE RECORDS SUMMARY | 2022-06-30 14:00 | XMS_ITS | Continuity of Care Document ---
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 Name Role Phone CAYLA FLOOD Primary Care Physician Encounter [facility] FIN NBR [id number] Date(s): 06/03/22 - 06/03/22 [facility] [address] [place], [place] [address] Discharge Disposition: Home or Self Care Attending Physician: Sheryl Aviles APRN Allergies, Adverse Reactions, Alerts Substance Reaction Severity Status aspirin Hives Breathing abnormal Severe Active Assessment and Plan Future Appointments Functional Status 06/03/22 Other exposure to Infectious Disease Non e Problem List Condition Confirmation Course Effective Dates Status Health St atus Informant Anxiety Confirmed Active Benign essential hypertension Confirmed Active Disease caused by 2019 novel coronavirus 1 Confirmed 04/07/22 Active History of gestational diabetes Confirmed 02/19/20 Active Influenza A Confirmed Active Rh negative, maternal Confirmed Active 1Problem added by Rule (IC_COVID19_AUTO_PROBLEM) following SARS-CoV-2 (COVID-19) Antigen (Binax) POCT from Nasal Swab collected on 07-APR-2022 17:03:00 EST tested positive for COVID-19. Procedures Procedure Date Related Diagnosis Body Site Status Oral surgery 1 Completed 1wisdom teeth x 4 Vital Signs Most recent to oldest [Reference Range]: 1 Blood Pressure [90-140/60-90 mmHg] 120/7 8mmHg (06/03/22 9:33 AM) Weight 91.4 kg (06/03/22 9:33 AM) Weight Measured (lbs) 201.502 lb (06/03/22 9:33 AM) [place] Body Weight Calculated 61.6 kg (06/03/22 9:33 AM) Height 170.18 cm (06/03/22 9:33 AM) Height/Length Measured (inches) 67 inch (06/03/22 9:33 AM) BSA Measured 2.08 m2 (06/03/22 9:33 AM) Body Mass Index 31.56 kg/m2 (06/03/22 9:33 AM) Social History Social History Type Response Tobacco Current everyday tob acco user Tobacco Use:. 1 ppd per day. Sex Patient Care team information Care Team Personnel Name: CAYLA FLOOD Position: No Access Member Role: Primary Care Physician Address: Address: [address] [place] [address] [address] [place], [place] [id number] [place] [address] Care Team Related Persons Name: TRINO RAMÍREZ Name: TAMERA ADAMS Address: Home [address] [place] [phone] [facility]
--- OUTSIDE RECORDS SUMMARY | 2022-06-30 14:00 | XMS_ITS | Continuity of Care Document ---
Author Name Unknown Organization [facility] Address [address] [place] [address] Encounter [facility] NBR [id number] Date(s): 04/07/22 - 04/07/22 [facility] [address] [place] [address]- [place] Encounter Diagnosis COVID-19(Discharge Diagnosis) - 04/07/22 Discharge Disposition: Home or Self Care Attending Physician: Danielle Rivas PA-C Allergies, Adverse Reactions, Alerts Substance Reaction Severity Status aspirin Severe Active Problem List Condition Confirmation Course Effective Dates Status Health St atus Informant Disease caused by 2019 novel coronavirus 1 Confirmed 04/07/22 Active 1Problem added by Rule (IC_COVID19_AUTO_PROBLEM) following SARS-CoV-2 (COVID-19) Antigen (Binax) POCT from Nasal Swab collected on 07-APR-2022 17:03:00 EST tested positive for COVID-19. 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 Yes *NA* (04/07/22 5:03 PM) SARS-CoV-2 (COVID-19) Ag (Binax) [Negati ve] Positive *ABN* (04/07/22 5:03 PM) Social History Social History Type Response Tobacco Current everyday tob acco user Tobacco Use:. 1/2 ppd per day. Sex Physician Outpatient Note * Danielle Rivas PA-C: PERFORM Event Display: Office Clinic Note Physician Authored Date: [id number] TERESA CLOUD :1990 Age:31 years Sex:Female Visit Date:04/07/2022 Assessment/Plan 1.??COVID-19??U07.1 Positive for COVID. ??Patient informed. ??2 days of headache, body aches and low-grade fevers.?? Her son tested positive for COVID just 2 weeks ago. ??She is unvaccinated.?Self-isolation guidelines discussed. ??She did not wish to be evaluated in the [facility] today. Orders: SARS-CoV-2 (COVID-19) Ag POC (RE), 04/07/22 17:02:00 EST, Encounter for screening for COVID-19, 04/07/22 17:02:00 EST Problem List/Past Medical History Ongoing Disease caused by 2019 novel coronavirus Historical No qualifying data Medications No active medications Allergies aspirin Social History Electronic Cigarette/Vaping Electronic Cigarette Use: Never. Tobacco Current everyday tobacco user Tobacco Use:. 1/2 ppd per day. Electronically Signed on 04/07/22 06:37 PM Danielle Rivas PA-C * Danielle Rivas PA-C: PERFORM Event Display: Office Clinic Note Physician Authored Date: [id number] TERESA CLOUD :1990 Age:31 years Sex:Female Visit Date:04/07/2022 Assessment/Plan 1.??COVID-19??U07.1 Patient informed of??positive COVID result.?? For less than 24 hours she is complained of headache??and body aches.?? Known COVID exposure??to her son??2 weeks ago.?? She does not wish to have oral COVID treatment. ??She does not wish to be evaluated in the office today.?? Isolation guidelines discussed with patient. ?? Encounter for screening for COVID-19??Z11.52 Ordered: SARS-CoV-2 (COVID-19) Ag POC (RE), 04/07/22 17:02:00 EST, Encounter for screening for COVID-19, 04/07/22 17:02:00 EST ?? Problem List/Past Medical History Ongoing Disease caused by 2019 novel coronavirus Historical No qualifying data Medications No active medications Allergies aspirin Social History Electronic Cigarette/Vaping Electronic Cigarette Use: Never. Tobacco Current everyday tobacco user Tobacco Use:. 1/2 ppd per day. Electronically Signed on 04/07/22 06:11 PM Danielle Rivas PA-C
--- OUTSIDE RECORDS SUMMARY | 2022-06-30 14:00 | XMS_ITS ---
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 Name Role Phone Frederick Aparicio Unavailable [phone] PROBLEMS Type Condition ICD9-CM Code [id number] Code Onset Dates Condition Status SNOMED Code Problem Major depressive disorder, single episode, unspecified F32.9 Active 24221314 Problem Anxiety disorder, unspecified F41.9 Active 447967597 Problem Threatened miscarriage in early O20.0 Active 49536961 Problem Gestational diabetes mellitus O24.419 Active 07941714 Problem History of gestational diabetes Z86.32 Active 161394967 Problem Benign essential hypertension I10 Active 6222274 ALLERGIES Substance Reaction Event Type Date Status Aspirin breathing issues/hives Drug Allergy August, Active ENCOUNTERS Encounter Location Date Diagnosis [facility] Occup[facility] Department [address] [place] [address] [id number] Oct, Hives L50.9 [facility] [address] [place] [address] [id number] Sep, Encounter for other administrative examinations Z02.89 [facility] [address], [place] [id number] August, [facility] [address] [place], [place] [id number] August, Other fatigue R53.83 [facility] [address], [place] [id number] 08 Jun, 2021 Encounter for other administrative examinations Z02.89 [facility] [address], [place] [id number] 09 May, 2021 [facility] [address] [place] [address] [id number] 15 Feb, 2021 Encounter for screening laboratory testing for COVID-19 virus Z20.828 and URI with cough and congestion J06.9 [facility] [address] [place] [address] [id number] Feb, Anxiety disorder, unspecified F41.9 ; Major depressive disorder, single episode, unspecified F32.9 and Vertigo R42 [facility] [address] [place] [address] [id number] Dec, Anxiety disorder, unspecified F41.9 [facility] [address] [place] [address] [id number] Nov, Anxiety disorder, unspecified F41.9 ; Encounter to establish care Z76.89 ; Major depressive disorder, single episode, unspecified F32.9 and Vertigo R42 [facility] [address] [place], [place] [id number] Oct, [address] [id number] August, [address] [id number] August, [address] [id number] 17 Aug, 2020 Benign essential hypertension I10 and History of gestational diabetes Z86.[address] [id number] 18 Jun, [address] [id number] 2020 care and examination Z39.[address] [id number] 17 May, [address] [id number] 11 May, 2020 2 weeks follow-up Z39.[address] [place] [id number] Apr, Encounter for supervision of normal first in third trimester Z34.[address] [id number] Apr, Encounter for supervision of other normal , third trimester Z34.83 ; 38 weeks gestation of Z3A.38 and Gestational diabetes mellitus O24.[address] [id number] Apr, Encounter for supervision of other normal , third trimester Z34.83 and Gestational diabetes mellitus O24.[address] [id number] Apr, Encounter for supervision of normal first in third trimester Z34.[address] [id number] Mar, Encounter for supervision of other normal , third trimester Z34.83 and Gestational diabetes mellitus O24.[address] [id number] Mar, Encounter for supervision of other normal , third trimester Z34.83 and Gestational diabetes mellitus O24.[address] [id number] Mar, Encounter for supervision of other normal , third trimester Z34.83 and Gestational diabetes mellitus O24.[address] [id number] Feb, Encounter for supervision of other normal , third trimester Z34.83 and Gestational diabetes mellitus O24.[address] [id number] Feb, [address] [id number] Feb, Gestational diabetes mellitus in childbirth, diet controlled O24.[address] [id number] Feb, Abnormal glucose tolerance test (GTT) during , antepartum O99.[address] [id number] 04 Feb, 2020 Encounter for supervision of normal first in second trimester Z34.[address] [id number] 16 Jan, [address] [id number] Jan, Encounter for supervision of other normal , second trimester Z34.[address] [id number] 08 Jan, 2020 Encounter for supervision of other normal , second trimester Z34.[address] [id number] 10 Dec, 2019 Encounter for supervision of other normal , second trimester Z34.82 and Sobia vaginitis B37.[address] [id number] Nov, Encounter for supervision of normal first in second trimester Z34.[address] [id number] Oct, [address] [id number] Oct, Threatened miscarriage in early O20.0 ; Supervision of normal first in first trimester Z34.01 and Screening examination for sexually transmitted disease Z11.[address] [id number] Oct, [address] [id number] Sep, Threatened miscarriage in early O20.[address] [id number] Sep, [address] [id number] Sep, Threatened miscarriage in early O20.0 IMMUNIZATIONS Vaccine Route Administration Date Status Tdap - Adult Unknown September 04, 2014 Administered RhoGAM IM Intramuscular Feb 14, 2020 Administere d SOCIAL HISTORY Qualifiers Date Current Smoker REASON FOR REFERRAL FUNCTIONAL STATUS PLAN OF CARE Activity Details VITAL SIGNS Height 67 in 2021-11-07 Height 67 in 2021-08-21 Height 67 in 2021-02-10 Height 67 in 2021-01-08 Height 67 in 2020-12-04 Height 67 in 2020-08-26 Height 67 in 2020-06-27 Height 67 in 2020-06-20 Height 67 in 2020-05-23 Height 67 in 2020-02-22 Height 67 in 2020-02-14 Height 67 in 2020-01-25 Height 67 in 2019-10-19 Height 67 in 2019-09-25 Weight 219 lbs 2021-11-07 Weight 226.0 lbs 2021-08-21 Weight 234.6 lbs 2021-02-10 Weight 233.4 lbs 2021-01-08 Weight 233.4 lbs 2020-12-04 Weight 219.0 lbs 2020-08-26 Weight 212.8 lbs 2020-06-27 Weight 210.8 lbs 2020-06-20 Weight 207.6 lbs 2020-05-23 Weight 237 lbs 2020-05-07 Weight 234 lbs 2020-04-30 Weight 235.2 lbs 2020-04-22 Weight 235.8 lbs 2020-04-16 Weight 231.4 lbs 2020-04-08 Weight 229.8 lbs 2020-03-29 Weight 228.2 lbs 2020-03-15 Weight 227.6 lbs 2020-03-01 Weight 232 lbs 2020-02-22 Weight 233.8 lbs 2020-02-14 Weight 225.8 lbs 2020-01-25 Weight 226.6 lbs 2020-01-18 Weight 220.0 lbs 2019-12-21 Weight 214.8 lbs 2019-11-17 Weight 216.2 lbs 2019-10-19 Weight 220.0 lbs 2019-09-25 Temperature 98.4 degrees Fahrenheit Temperature 97.2 degrees Fahrenheit Temperature 97.1 degrees Fahrenheit Heart Rate 98 /min 2021-11-07 Heart Rate 105 /min 2021-08-21 Heart Rate 101 /min 2021-02-10 Heart Rate 108 /min 2021-01-08 Heart Rate 118 /min 2020-12-04 Oximetry 100 2021-11-07 Oximetry 99 2021-08-21 Oximetry 99 2021-02-10 Oximetry 99 2021-01-08 Oximetry 98 2020-12-04 Respiratory Rate 18 /min 2021-11-07 BMI 34.30 kg/m2 2021-11-07 BMI 35.39 kg/m2 2021-08-21 BMI 36.74 kg/m2 2021-02-10 BMI 36.55 kg/m2 2021-01-08 BMI 36.55 kg/m2 2020-12-04 BMI 34.30 kg/m2 2020-08-26 BMI 33.33 kg/m2 2020-06-27 BMI 33.01 kg/m2 2020-06-20 BMI 32.51 kg/m2 2020-05-23 BMI 36.618 kg/m2 2020-02-14 BMI 35.365 kg/m2 2020-01-25 BMI 33.862 kg/m2 2019-10-19 BMI 34.45 kg/m2 2019-09-25 Blood pressure systolic 130 mm Hg Blood pressure diastolic 81 mm Hg 2021-10 MEDICATIONS Medication Instructions Dosage Frequency Start Date End Date Duration Status FreeStyle Lite Test Strips as directed 6h Not-Ta kin g FreeStyle Lite Lancets as directed 6h Not-Taki n g Dramamine 50 MG Orally every 6 hrs 1 tablet as needed 6h Not-Takin g Ibuprofen 600 MG Orally Three times a day 1 tablet with food or milk as needed 8h Active Adult Gummy/DHA/FA 0.4-25 MG as directed Active FreeStyle Lite Meter as directed Not-Taki n g NuvaRing 0.12-0.015 MG/24HR [address] for 3 weeks, remove, and replace with a new ring after 7 day break Jun, 28 day(s) Not-Takin g PROCEDURES Procedure Date Ordered Result Body Site SUBSEQUENT CARE May 07, 2020 OCD Urine Drug Screen (collection only) October 06, 2021 INITIAL CARE VISIT October 19, 2019 SUBSEQUENT CARE Feb 22, 2020 THER/PROPH/DIAG INJ, SC/IM Feb 14, 2020 CARE VISIT May 23, 2020 SUBSEQUENT CARE Feb 13, 2020 RHO(D) IMMUNE GLOBULIN (RHIG )FELIPA, FULL-DOSE, FOR INTRAMUSCULAR USE Feb 14, 2020 SUBSEQUENT CARE Jan 18, 2020 WET TUSHAR W/PREP VAG CERV/SKN SPEC Dec 21, 2019 SUBSEQUENT CARE Apr 08, 2020 OCD Urine Drug Screen (collection only) June 17, 2021 CARE VISIT June 20, 2020 SUBSEQUENT CARE Apr 30, 2020 SUBSEQUENT CARE Jan 25, 2020 SUBSEQUENT CARE Feb 14, 2020 SUBSEQUENT CARE Apr 16, 2020 SUBSEQUENT CARE Mar 15, 2020 SUBSEQUENT CARE Apr 22, 2020 SUBSEQUENT CARE Dec 21, 2019 SUBSEQUENT CARE Nov 17, 2019 SUBSEQUENT CARE Mar 29, 2020 SUBSEQUENT CARE Mar 01, 2020 RESULTS Name Result Date Reference Range CT HEAD WO CONTRAST 2021-12-28 OCD URINE COLLECTION 2021-10-06 CBC, WITH AUTO DIFF 2021-08-21 WBC 9.7 4.8-10.8 RBC 5.55 4.20-5.40 HGB 14.2 12.0-16.0 HCT 45.2 37.0-47.0 MCV 81.4 81.0-99.0 MCH 25.6 27.0-31.0 MCHC 31.4 32.0-37.0 RDW-CV 13.2 11.5-14.5 PLT 254 130-400 MPV 11.1 7.4-10.4 NE% 71.5 42.2-75.2 LY% 21.6 20.5-51.1 MO% 5.8 1.7-9.3 EO% 0.6 0.9-2.9 BA% 0.3 0.0-0.8 NE# 6.9 1.4-6.5 LY# 2.1 1.2-3.4 MO# 0.6 0.1-0.6 EO# 0.1 0.0-0.2 BA# 0.0 0.0-0.2 COMPREHENSIVE METABOLIC PROFILE 2021-08-10 2 SODIUM 139 134-143 POTASSIUM 4.3 3.5-5.1 CHLORIDE 105 98-111 CO2 25 22-32 CALCIUM 9.3 8.9-10.3 GLUCOSE 95 74-106 BUN 9 8-26 CREATININE 0.71 0.44-1.00 TOTAL BILIRUBIN 0.7 0.3-1.2 TOTAL PROTEIN 7.1 6.5-8.1 ALBUMIN 4.5 3.5-5.0 ALKALINE PHOS 65 38-130 AST 28 15-41 ALT 33 14-54 A/GAP 9.0 3.0-12.0 B/CR 12.7 8.0-20.0 OSMOLARITY 276 275-295 GLOBULIN 2.6 2.3-3.5 A/G 1.7 1.0-2.5 TSH w/REFLEX TO FT4 2021-08-21 TSH 1.71 0.45-5.33 OCD URINE COLLECTION 2021-06-17 COVID 19 (POS) BinaxNow Ag Card 2021-02-10 5 SARS-CoV-2 neg GLYCOHEMOGLOBIN A1C 2020-08-27 HGBA1c 5.6 4.0-6.0 est Average Glucose 114 70-105 COMPREHENSIVE METABOLIC PROFILE 2020-08-10 8 SODIUM 136 134-143 POTASSIUM 3.8 3.5-5.1 CHLORIDE 103 98-111 CO2 25 22-32 CALCIUM 8.9 8.9-10.3 BUN 13 8-26 CREATININE 0.65 0.44-1.00 TOTAL BILIRUBIN 0.2 0.3-1.2 TOTAL PROTEIN 7.0 6.5-8.1 ALBUMIN 4.1 3.5-5.0 ALKALINE PHOS 57 32-92 AST 22 15-41 ALT 32 14-54 A/GAP 8.0 3.0-12.0 B/CR 20.0 8.0-20.0 OSMOLARITY 271 275-295 GLOBULIN 2.9 2.3-3.5 A/G 1.4 1.0-2.5 NATE TEST 2020-05-09 NATE TEST: NEGATIVE NEGATIVE ROSSETTE COMM POSITIVE NATE TABITHA T WILL REFLEX TO A KLEIHAUER-BETKE STAIN FOR EVALUATION OF /MATERNAL HEMMORHAGE. BLOOD ABORH TYPE 2020-05-09 ABORh O NEGATIVE PROCESSING RHOGAM 2020-05-09 ABORh MOTHER: O NEGATIVE ABORh BABY: O POSITIVE RhIg LOT #: [id number] EXP DATE: 09-08-2021 RHOGAM WORKUP 2020-05-08 RhIg Candidate YES URINE DIP ([facility]) 2020-05-07 Color Clarity Glucose 250 Bilirubin Ketones Specific [place] Blood PH Protein negative Uro Nitrates Leukocytes URINE DIP ([facility]) 2020-04-30 Color Clarity Glucose negative Bilirubin Ketones Specific [place] Blood PH Protein negative Uro Nitrates Leukocytes URINE DIP ([facility]) 2020-04-22 Color Clarity Glucose negative Bilirubin Ketones Specific [place] Blood PH Protein negative Uro Nitrates Leukocytes GROUP-B STREP SCREEN - RAPID PCR 2020-04-22 Group B Strep by PCR NEGATIVE NEGATIV E URINE DIP ([facility]) 2020-04-16 Color Clarity Glucose negative Bilirubin Ketones Specific [place] Blood PH Protein negative Uro Nitrates Leukocytes URINE DIP ([facility]) 2020-04-08 Color Clarity Glucose negative Bilirubin Ketones Specific [place] Blood PH Protein negative Uro Nitrates Leukocytes URINE DIP ([facility]) 2020-03-29 Color Clarity Glucose negative Bilirubin Ketones Specific [place] Blood PH Protein negative Uro Nitrates Leukocytes URINE DIP ([facility]) 2020-03-01 Color Clarity Glucose negative Bilirubin Ketones Specific [place] Blood PH Protein negative Uro Nitrates Leukocytes GLUCOSE YRN - 3HR 2020-02-19 FASTING 85 <=95 OB 1 HOUR GLUCOSE 195 <=180 OB 2 HR GLUCOSE 165 <=155 OB 3 HR GLUCOSE 56 <=140 URINE DIP ([facility]) Color yellow Clarity cloudy Glucose neg Bilirubin Ketones Specific [place] Blood PH Protein neg Uro Nitrates Leukocytes US OB FOLLOW UP 2020-03-01 CBC, WITH AUTO DIFF 2020-02-14 WBC 11.0 4.8-10.8 RBC 4.41 4.20-5.40 HGB 11.7 12.0-16.0 HCT 36.1 37.0-47.0 MCV 81.9 81.0-99.0 MCH 26.5 27.0-31.0 MCHC 32.4 32.0-37.0 RDW-CV 13.2 11.5-14.5 PLT 193 130-400 MPV 11.5 7.4-10.4 NE% 80.6 42.2-75.2 LY% 13.0 20.5-51.1 MO% 5.1 1.7-9.3 EO% 0.5 0.9-2.9 BA% 0.3 0.0-0.8 NE# 8.8 1.4-6.5 LY# 1.4 1.2-3.4 MO# 0.6 0.1-0.6 EO# 0.1 0.0-0.2 BA# 0.0 0.0-0.2 ANTIBODY SCREEN 2020-02-14 ANTIBODY SCREEN NEGATIVE NEGATIVE GLUCOSE YRN GESTATIONAL(50GM) 2020-02-14 GLUCOSE - 1 HR POST 146 <=135 PROCESSING RHOGAM 2020-02-14 ABORh MOTHER: O NEGATIVE ABORh BABY: RhIg LOT #: [id number] EXP DATE: 07-28-2021 URINE DIP ([facility]) 2020-01-25 Color Clarity Glucose negative Bilirubin Ketones Specific [place] Blood PH Protein negative Uro Nitrates Leukocytes URINE DIP ([facility]) 2020-01-18 Color Clarity Glucose 250 Bilirubin Ketones Specific [place] Blood PH Protein negative Uro Nitrates Leukocytes URINE DIP ([facility]) 2019-12-21 Color Clarity Glucose negative Bilirubin Ketones Specific [place] Blood PH Protein negative Uro Nitrates Leukocytes URINE DIP ([facility]) 2019-11-17 Color Clarity Glucose negative Bilirubin Ketones Specific [place] Blood PH Protein negative Uro Nitrates Leukocytes CBC, WITH AUTO DIFF 2019-11-17 WBC 10.5 4.8-10.8 RBC 4.98 4.20-5.40 HGB 12.9 12.0-16.0 HCT 39.9 37.0-47.0 MCV 80.1 81.0-99.0 MCH 25.9 27.0-31.0 MCHC 32.3 32.0-37.0 RDW-CV 13.9 11.5-14.5 PLT 197 130-400 MPV 11.9 7.4-10.4 NE% 83.1 42.2-75.2 LY% 11.9 20.5-51.1 EO% 0.3 0.9-2.9 BA% 0.2 0.0-0.8 NE# 8.7 1.4-6.5 LY# 1.3 1.2-3.4 MO# 0.4 0.1-0.6 EO# 0.0 0.0-0.2 BA# 0.0 0.0-0.2 CULTURE URINE 2019-11-17 HEPATITIS B SURFACE ANTIGEN, 2019-11-17 HEP B SURFACE AG NON-REACTIVE NON-REACTIV E RUBELLA IGG ANTIBODY 2019-11-17 RUBELLA 43.1 >=10.0 RUB HEAD REFERENCE RANGE: (IU /mL) <5.0 : NON-IMMUNE 5.0 - 9.9 : KAPLAN ZONE >= 10.0 : IMMUNE TYPE AND SCREEN, 2019-11-17 ABORh O NEGATIVE ANTIBODY SCREEN NEGATIVE NEGATIVE TS COMM Pre-op Type & Screen specimens are valid for 7 days. If the patient has been transfused or been within the past 3 months, the specimen is only valid for 3 days. HIV12P 2019-11-17 HIV1/O/2 Abs,P24Ag NON-REACTIVE NON-REACT MOY SYPHILIS, 2019-11-17 SYPHILIS NON-REACTIVE NON-REACTIVE US OB GREATER THAN 14 WEEKS 2019-12-21 Pap Lb, Ct-Ng, rfx HPV ASCU 2019-10-19 . Chlamydia, Nuc. Acid Amp Gonococcus, Nuc. Acid Amp Note: . Clinical history: DIAGNOSIS: Specimen adequacy: Additional comment: Recommendation: Performed by: Electronically signed by: Test ordered: Maturation index: Amended report: Addendum: QC reviewed by: Cytology history: Special procedure: QA comment: Diagnosis provided by: Source: Pathologist provided ICD9: Clinician provided ICD9: Interpretation LBP CPT Code Automation CHLAMYDIA/GONOCOCCUS, by PCR 2019-10-19 C. trachomatis by PCR PCR GENITAL SPECIMEN N. gonorrhoeae by PCR Chlamydia trachomatis, PAMELA Neisseria gonorrhoeae, PAMELA Please note: HCG, BETA (QUANT) 2019-09-22 BETA HCG 01974.0 <=5.0 BHCG INT WEEKS POST LMP APPRO XIMATE HCG (mIU/mL) 3-4 weeks 9 - 130 4-5 weeks 75 - 2600 5-6 weeks HCG, BETA (QUANT) 2019-09-20 BETA HCG 31675.0 <=5.0 BHCG INT WEEKS POST LMP APPRO XIMATE HCG (mIU/mL) 3-4 weeks 9 - 130 4-5 weeks 75 - 2600 5-6 weeks REASON FOR VISIT occ w/c allergic reaction, pt states she is having a reaction to something while she was at work , OCC UDC, Lab Results, pc poss anemia, PC - Discuss Possible Anemia?, occ- udc, OCC udc , reno headache body ache-elly ordered, UC- Sore throat/headache/stuffy nose [phone], Point of Service COVID 19 Screening, PC - 5wk f/u, KP Depression/Anxiety, vertigo, standing or sitting, if she tilts her head down gets really dizzy, at least qd, since giving , 9 mos now, pc 5wk f/u, kp hypertension, 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, Pt states that she is trying to lose weight but its not going anywhere, states that her anxiety is going through the roof since she had her baby and feels like her vertigo is getting worse since she has had her baby too, Pt states that she had gestational diabetes, 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, [employer] 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 APPT , FYI-letter, lab results , 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 2 month follow up, 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 lump on left breast near nipple, 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 lump in left breast, 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 6 week unsure of BC, discharge, obgyn nurse est 2 wk postpartal, OB Follow Up, OB follow up, *OB follow up, [facility]: OB f/u, OB follow up, OB follow up, OB follow up, OBfollow up, OB follow up, OB follow up, Fasting #'s, OB GDM, 3 hour GTT, OB Follow Up, *OB follow up, [facility]: Ob f/u 2+preg/2nd tri, COVID concerns, wants note for work, OB follow up, BP check, OB follow up, OB u/s f/u, OB EST 4 WK F/UP, OB New ob, lmp 08/09, FYI-Nausea all day, 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 ultrasound, Early OB with US, ? Quants, L/M w/answering service Insurance Providers Health Insurance Type Health Plan Insurance Address Health Plan Insurance Phone Health Plan Insurance Name Health Plan Coverage Dates Member ID Patient Relationship to Subscriber Patient Address Patient Phone Patient Name Patient Date of Subscriber ID Subscriber Name Subscriber Date of Group No OCD - [employer] [address] [address] [facility] [address] OCD - [employer] self Lesli Hilliard 1990 [id number] [facility] [place] MEDICAID [address] [facility] [phone] 06 [employer] [place] MEDICA[place] self Lesli Hilliard 1990 [id number] [place] MED[place] [address] [facility] [id number] [place] self Lesli Hilliard 1990 [id number] [employer] [address] [facility] [address] OCD - [employer] self Lesli Hilliard [id number]
--- NOTE | 2022-06-30 14:59 | W.ED.GENAD ---
Discharge Plan Disposition Patient Disposition: Home Condition: Stable Discharge Details Clinical Impression: Anger Primary Care Provider: Silvina Márquez ED Provider: Sahil Josue Home Meds and New Rx's Prescriptions: Continued gtegibqw-[id number]-[id number] 1 mg Tablet 1 tab PO DAILY Discharge Instructions Additional Instructions: You were seen in the emergency department for your history of anger. You were seen by [facility] and they advised that you call their 24-hour resource number as needed: [phone]. If you do not feel safe at home or if you develop any vaginal bleeding or abdominal pain please return to the emergency department. Discharge Data Discharge Date/Time-TO BE ENTERED AT DEPARTURE: 06/30/22 17:17 Medical Decision Making This is an overall quite well-appearing normothermic and not tachycardic 32-year-old female with recent history of anger. She is 5 weeks but not having any vaginal bleeding and reportedly has appropriately rising outpatient beta-hCG's's and no indication for repeat hCG. No abdominal pain to suggest ectopic . She is not an alcoholic and has no signs of withdrawal. She denies overdose and has no obvious toxidrome on exam. I have spoken with [facility] and asked a crisis to help evaluate the patient. Patient does note that she has primary care follow-up tomorrow and has a therapist scheduled in 6 days. 4:55pm I spoke to Rachana from [facility] who felt patient was appropriate for discharge with outpatient follow. Will pass along 02/11 resource number: [phone]. I met with the patient Olivia bhardwaj. Patient felt comfortable with plan for discharge. I advised her that if she felt uncomfortable with this plan or had any concerns that she should return to the emergency department. HPI General Date/Time Provider Initiated Documentation: 06/30/22 13:58. HPI Narrative: This is a previously healthy 32-year-old female who was recently status post miscarriage and now 5 weeks presenting in the setting of anger. She is requesting mental health screening. She denies suicidal homicidal ideation. She smokes tobacco but denies routine ethanol and illicits. She is not having any hallucinations. She denies abdominal pain vaginal bleeding. She reported that 5 days ago she had a beta-hCG that was 98 and that this tripled by yesterday. She is due for outpatient [facility] [employer] follow-up on July 20 for an ultrasound. She is not having any visual nor auditory hallucinations. She is due to follow-up with her primary care provider tomorrow and with a therapist in 6 days. She reports being concerned about her anger and her outbursts. She reports being concerned for her words. Related Data Home Medications Medication Instructions Recorded Confirmed mdkpbzvj-[id number]-FA 1 mg 1 tab PO DAILY 06/30/22 06/30/22 tablet Allergies Allergy/AdvReac Type Severity Reaction Status Date / Time aspirin Allergy Unverified 06/30/22 14:04 General Stated Complaint: PsychEval CALLIE: 2 PFSH All Active Problems (Updated 06/30/22 @ 16:57 by Sahil Josue MD) Anger (Acute) Anxiety (Chronic) Incomplete miscarriage (Acute) Medical History (Updated 06/30/22 @ 16:57 by Sahil Josue MD) Hemorrhagic cyst of right ovary Vertigo Surgical History History of wisdom tooth extraction (2013) Family History Mother Asthma Depression Paternal Aunt No problems noted. 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 Pets and animals: Yes Pets and animals: dog(s) Sexually active: Yes Do you think of yourself as: straight/heterosexual Current gender identity: female What is your relationship status?: never How often do you talk on the phone with friends or family?: three or more times per week How often do you get together with friends or relatives?: twice per week Do you belong to any clubs or organized social groups?: no Panel score (0-1 are the most socially isolated patients): 1 What type of physical activity do you participate in: none Special kaylee needs: No Seatbelt use: always Helmet use: No Drive intox or ride w/intox local flatbed driver: No Do you feel safe at home: Yes Do you feel safe in your relationship?: Yes History History 3 Para Hx # Term Pregnancies 1 Multiple births Hx # Pregnancies Ectopic pregnancies AB induced Hx Number of Living Children AB spontaneous 1 Exam Narrative Exam Narrative: General: Well-appearing in no acute distress speaking in complete sentences. Head: Normocephalic, atraumatic Ear, nose, mouth, throat: Grossly normal inspection. Normal voice, handling secretions normally. Neck: Trachea midline. Cardiovascular: Well-perfused distal extremities. Respiratory: Nonlabored respiration. Gastrointestinal: Nondistended abdomen. Musculoskeletal: No edema. Moving all 4 extremities spontaneously. Skin: Normal for age and race, grossly normal temperature and turgor. No acute rash. Neurologic: Alert and appropriate, no apparent acute deficits. Psychiatric: Mood and manner are appropriate. Grooming and personal hygiene are appropriate. No flight of ideas. No pressured speech. Denies suicidal homicidal ideation. Course Vital Signs Vital signs: Vital Signs Temperature 37.0 C 06/30/22 14:00 Pulse 99 H 06/30/22 14:00 Respiratory Rate 16 06/30/22 14:00 Blood Pressure 120/70 06/30/22 14:00 Pulse Oximetry 100 06/30/22 14:00 Temperature 37.0 C 06/30/22 14:00 Temperature Source Oral 06/30/22 14:00 Pulse 99 H 06/30/22 14:00 Respiratory Rate 16 06/30/22 14:00 Respiratory Effort Normal 06/30/22 14:07 Blood Pressure 120/70 06/30/22 14:00 Blood Pressure Position Sitting 06/30/22 14:00 Pulse Oximetry 100 06/30/22 14:00 Oxygen Delivery Method Room Air 06/30/22 14:00 Oxygen Flow Rate 0 06/30/22 14:00 Pain Level 0 06/30/22 14:00
--- NOTE | 2022-06-30 17:48 | PDOC.MHCN ---
Date of service: 06/30/22 Time of Service: 17:48 PHQ-9 Over the last 2 weeks, how often have you been bothered by any of the following problems? 1. Little interest or pleasure in doing things: not at all 2. Feeling down, depressed, or hopeless: nearly every day 3. Trouble falling or staying asleep, or sleeping too much: not at all 4. Feeling tired or having little energy: several days 5. Poor appetite or overeating: not at all 6. Feeling bad about yourself - or that you are a failure or have let yourself and your family down: nearly every day 7. Trouble concentrating on things, such as reading the newspaper or watching television: several days 8. Moving or speaking so slowly that other people could have noticed? - Or the opposite - being so fidgety or restless that you have been moving around a lot more than usual: several days 9. Thoughts that you would be better off or of hurting yourself in some way: not at all Total score: 9 If you checked off any problems, how difficult have these problems made it for you to do your work, take care of things at home, or get along with other people?: somewhat difficult Source: Developed by Drs. Veto Gamboa, Sienna Mejia, Yayo Key and colleagues, with an educational eze from [employer]. Suicide Severity Rate CSSRS Have you wished you were or wished you could go to sleep and not wake up?: Yes Have you actually had any thoughts of killing yourself?: No CSSRS4 Was this within the past three months?: No Screening Score Total Score: 2 Screening: Positive Mental Health Emergency Note Release [facility] release signed:: Yes Reason for Visit Client arrived via herself seeking support with her anger and anxiety. She said she was told by her boyfriend to come and that since being her symptoms have increased. In the last 2 weeks has the pt presented for ES prior to today?: Unknown Client Information Client is: Adult Outpatient Well Housed: Yes Non Suicidal Self Injury Current: No History: yes, Client reported a history of punching and throwing things when triggered. Safety Risk/Harm to Self or Others Current Ideation to Harm Self or Others: No Risk: Does risk to harm exist?: No Risk: Low Risk Duty to warn indicated: No Asssessment/Mental Status Appearance: Well groomed Attitude: Cooperative and Friendly Behavior: Unremarkable Speech: Normal Affect: Normal Mood: Depressed and Anxious Thought process: Goal directed Hallucinations: No Delusions: No Attention: Unremarkable Perception: Not impaired Orientation: Fully orientated Memory: Intact Insight: Good Judgement: Good Neurovegetative Symptoms Sleep: No change Appetitie: Increase Interests: Decrease Energy: Decrease Libido: Not applicable Substance Use: Do you use nicotine?: Yes Have you used substances in the last 7 days?: No Additional Issues: Assaultive/Threatening Behavior: No Medical Concerns: No Client engaged in active self harm w/weapon: No Threatening to run away: No Child reported abuse/neglect: No Voluntarily presenting for services: Yes Domestic violence is a concern: No Extreme Psychosis or extreme behavior is present: No Impression Client is a 32 year old, single , female who lives with her Significant Other (SO) in [facility]. She works for [employer] in [place]. Client is concerned about her anger issues and stated that she has had anger issues since she was a child. She reported that they have increased since becoming before this (miscarriage resulting in that ) and she wants to get better and not feels so angry but is seeking to feel happy. Client also has a 2 year old son at home. Client's boyfriend told her she needed to go to the ED for help. Client presented as calm and insightful to her symptoms of anger issues and reported she had a break down this am and snapped. She reported her hormones from the pregnancies have had her heightened for the past 7 months. Client reported that she has an appointment tomorrow with her PCP, Christy Márquez and her first therapy appointment on 07.07 with Remigio Crawford at [facility]. Client would benefit from some anxiety, grounding and breathing handouts and these will be provided via e-fax to the ED. Protective factors include client is able to control her anger in all areas of her life except for intimate ones I tend to push people away. 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 She has already put things in motion to address her symptoms with her PCP and therapy, both new to her. She likes trying to light up an environment She also reported I don't want to feel anger anymore. I want to be happy. Resources Anabelle reviewed and given:: 988 and [facility] Plan/Disposition Recommended Disposition: PCP/Office visit and Therapy. Plan: Client was given the numbers for 988 and [facility] for anytime struggles and she needs support. She was encouraged to continue on the directions she is on as she is doing exactly what she needs to do to attain her goal of being happy. She was offered handouts that offer guidance about anxiety and how to cope and deal with them. Those were e-faxed to [facility] for discharge. Person reported agreement to plan: Yes Reports/communication Outcome discussed with: ED/Personnel
== END 2022-06-30 17:17 | disposition home or self-care (01) ==
PROVIDERS: Emergency Provider Emergency Medicine; PCP Nurse Practitioner Family
DX: R45.4 Irritability and anger (principal)
CPT/HCPCS: 99283

== ENCOUNTER 2022-07-11 15:43 | Emergency (ER) | payer MEDICAID, SELFPAY ==
[2022-07-11 15:47] VITALS: BP 132/66; PULSE 96; RESP 16; TEMP 36.8; O2SAT 99
--- NOTE | 2022-07-11 16:00 | ED.GENADUL_ITS ---
Discharge Plan Disposition Patient Disposition: Home Discharge Details Clinical Impression: Primary Care Provider: Silvina Márquez ED Provider: Clifton Coronado Home Meds and New Rx's Prescriptions: No Action sertraline 25 mg tablet 25 mg PO DAILY Qty: 45 0RF [id number]-wyb-Ra-FA 1 mg Tablet 1 tab PO DAILY Discharge Instructions Instructions: (ED) Additional Instructions: Follow-up with your repeat beta quant on Wednesday as requested by your SLEEPER CUTTER. Your quant on Wednesday was 13,397. Return if you have any concerns. Follow-up with your OB as planned Discharge Data Discharge Date/Time-TO BE ENTERED AT DEPARTURE: 07/11/22 18:04 Medical Decision Making 32-year-old presents to the emergency room with some spotting. She was told by her OB to get a quant done on Wednesday and repeat on Wednesday but she could not fit that into her schedule therefore she came to the emergency department to have her first quant done today. She is essentially symptomatic in the emergency department. No abdominal pain. Her quant today is 13,397. These results were reviewed with the patient. HPI General Date/Time Provider Initiated Documentation: 07/11/22 15:47 . HPI Narrative: 32-year-old presents to the emergency room for evaluation brown spotting this morning. She had her last miscarriage documented May 31 when she had an ultrasound that did not show any IUP. Since then she has had a positive test that was confirmed with a blood test a few weeks ago. She reached out to her OB because of spotting this morning was told to go to the office on Wednesday and Wednesday for serial quant's. Given that she is working on Wednesday and could not have the blood drawn on that day she decided come to the emergency department and have her first quant done today. She does not have any cramping or abdominal pain. No nausea no vomiting. Related Data Home Medications Medication Instructions Recorded Confirmed [id number]-[id number] 1 mg 1 tab PO DAILY 06/30/22 07/11/22 tablet sertraline 25 mg tablet 25 mg PO DAILY #45 tab-caps 07/01/22 07/11/22 Previous Rx's Medication Instructions Recorded sertraline 25 mg tablet 25 mg PO DAILY #45 tab-caps 07/01/22 Allergies Allergy/AdvReac Type Severity Reaction Status Date / Time aspirin Allergy syncope Unverified 07/11/22 15:51 bupropion [From Wellbutrin] AdvReac Other (See Verified 07/11/22 15:51 Comment) General Stated Complaint: SLEEPER CUTTER CALLIE: 3 Review of Systems Narrative: 10 point review of systems is negative besides was specified in the HPI. [facility] All Active Problems (Updated 07/11/22 @ 17:05 by Clifton Coronado MD) (Acute) Anger (Acute) Anxiety (Chronic) Medical History (Updated 07/11/22 @ 17:05 by Clifton Coronado MD) Gestational diabetes Diet-controlled (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 Paternal Grandmother Diabetes Heart disease Father Hypertension Social History Smoking/Tobacco Use Status: Current every day Tobacco Type: cigarettes Smoking packs per day: 1 Smoking cigarettes per day: 20.0 Tobacco: How many years used: 15 Quit status: considering quitting Smoking risk assessment performed?: Yes Alcohol Intake: never Drug use: Never Substance use type: does not use Adopted: No Caregiver/Support person: No Foster care: No Household members: significant other, children and other Details: 06/2022: 2-yr-old son & 4 wks Housing: house Number of Children: 1 Communication Needs: None Education Level: high school Do you need help understanding health information?: Rarely current occupation: [employer] Pets and animals: Yes Pets and animals: dog(s) Sexually active: Yes Do you think of yourself as: straight/heterosexual Current gender identity: female What is your relationship status?: never How often do you talk on the phone with friends or family?: three or more times per week How often do you get together with friends or relatives?: twice per week Do you belong to any clubs or organized social groups?: no Panel score (0-1 are the most socially isolated patients): 1 What type of physical activity do you participate in: none Special kaylee needs: No Seatbelt use: always Helmet use: No Drive intox or ride w/intox superintendent drivers: No Do you feel safe at home: Yes Do you feel safe in your relationship?: Yes History History 3 Para Hx # Term Pregnancies 1 Multiple births Hx # Pregnancies Ectopic pregnancies AB induced Hx Number of Living Children AB spontaneous 1 Exam Narrative Exam Narrative: Awake alert on x3, no acute distress pleasant cooperative Normocephalic atraumatic PERRLA EOMI MMM anicteric Normal cap refill Normal work of breathing Neuro grossly intact Skin no rashes Course Vital Signs Vital signs: Vital Signs Temperature 36.8 C 07/11/22 15:47 Pulse 96 H 07/11/22 15:47 Respiratory Rate 16 07/11/22 15:47 Blood Pressure 132/66 07/11/22 15:47 Pulse Oximetry 99 07/11/22 15:47 Temperature 36.8 C 07/11/22 15:47 Temperature Source Oral 07/11/22 15:47 Pulse 96 H 07/11/22 15:47 Respiratory Rate 16 07/11/22 15:47 Respiratory Effort Normal 07/11/22 15:50 Blood Pressure 132/66 07/11/22 15:47 Blood Pressure Position Sitting 07/11/22 15:47 Pulse Oximetry 99 07/11/22 15:47 Oxygen Delivery Method Room Air 07/11/22 15:47 Oxygen Flow Rate 0 07/11/22 15:47 Pain Level 1 07/11/22 15:51
[2022-07-11 16:57] LABS: HCG Quant, Pregnancy 13397 mIU/mL (1-3)
[2022-07-11 17:55] VITALS: BP 113/63; PULSE 93; RESP 16; O2SAT 98
== END 2022-07-11 18:04 | disposition home or self-care (01) ==
PROVIDERS: Emergency Provider Emergency Medicine; PCP Nurse Practitioner Family
DX: O26.851 Spotting complicating pregnancy, first trimester (principal); Z3A.00 Weeks of gestation of pregnancy not specified; O09.291 Supervision of pregnancy with other poor reproductive or obstetric history, first trimester
CPT/HCPCS: 99282; 84702; 99283

== ENCOUNTER 2023-07-27 10:02 | Emergency (ER) | payer MEDICAID, SELFPAY ==
[2023-07-27 10:07] VITALS: BP 143/72; PULSE 85; RESP 18; TEMP 37; O2SAT 100
--- NOTE | 2023-07-27 11:00 | DI.RAD_ITS ---
Exam(s) XR HAND RT COMPLETE EXAM: XR HAND RT COMPLETE CLINICAL HISTORY: R middle finger injury. TECHNIQUE: 2D digital imaging was performed. Three views. COMPARISON: No exams were available for comparison FINDINGS: BONES: No acute fracture is present. No bony destructive lesion is seen. JOINTS: No dislocation present. SOFT TISSUE: Normal. IMPRESSION: Unremarkable radiographs of the right hand. DATA REPOSITORY: RADIATION DOSE DELIVERED:
--- NOTE | 2023-07-27 11:16 | ED.GENADUL_ITS ---
Discharge Plan Disposition Patient Disposition: Home Condition: Stable Discharge Details Clinical Impression: Sprain of finger of right hand Primary Care Provider: Silvina Márquez ED Provider: Prema Hernandez Home Meds and New Rx's Prescriptions: Continued sertraline 25 mg tablet 25 mg PO DAILY Qty: 45 0RF norethindrone-e.estradiol-iron [Daiana Fe 1.5/30 (28)] 1.5 mg-30 mcg (21)/75 mg (7) tablet 1 tab PO DAILY Patient Comments: TAKE 1 TABLET BY MOUTH DAILY Discharge Instructions Additional Instructions: Please follow up with orthopedics for evaluation of your R middle finger pain. Your xray was negative, no fracture or dislocation noted. I recommend that you use mehdi taping, ibuprofen 600 mg every 8 hours as needed, and ice/elevation. You may use a finger splint for comfort if needed. Referrals: HEBER Flowers [RN FOR [facility] OR] - HPI General Date/Time Provider Initiated Documentation: 07/27/23 10:11 . HPI Narrative: Lesli is a 33 year old female who presents to the emergency dept for evaluation of R middle finger pain. She reports she injured it while horsing around with her boyfriend, sustained a twisting injury. She reports she has had pain with bending her finger since the incident. She has not taken any medications or done any treatment for this. No distal numbness/tingling or change in color. She is right handed. No significant PMH, says she can take ibuprofen. Related Data Home Medications Medication Instructions Recorded Confirmed sertraline 25 mg tablet 25 mg PO DAILY #45 tab-caps 07/01/22 07/27/23 norethindrone 1.5 mg-ethinyl 1 tab PO DAILY 07/27/23 07/27/23 estradiol 30 mcg(21)/iron 75 mg(7) tablet (Daiana Fe 1.5/30 (28)) Previous Rx's Medication Instructions Recorded sertraline 25 mg tablet 25 mg PO DAILY #45 tab-caps 07/01/22 Allergies Allergy/AdvReac Type Severity Reaction Status Date / Time aspirin Allergy syncope Unverified 07/27/23 10:10 bupropion [From Wellbutrin] AdvReac Chest pain Verified 07/27/23 10:10 General Stated Complaint: Orthopedic CALLIE: 4 Review of Systems Narrative: see HPI Exam Const General: cooperative, healthy appearing and comfortable Extrem General: normal to inspection Right upper extremity: wrist Details: normal to inspection and hand (Full range of motion. ) Details: abnormal to inspection (Mild tenderness to palpation of proximal and middle phalynx) Details: no clubbing, no joint swelling, no splinter hemorrhages and no deformity, normal capillary refill and normal ROM of fingers; no unusual warmth, no swelling, no abrasions, no lacerations, no ecchymosis and no puncture wound Course Vital Signs Vital signs: Vital Signs Temperature 37.0 C 07/27/23 10:07 Pulse 85 07/27/23 10:07 Respiratory Rate 18 07/27/23 10:07 Blood Pressure 143/72 H 07/27/23 10:07 Pulse Oximetry 100 07/27/23 10:07 Temperature 37.0 C 07/27/23 10:07 Temperature Source Skin 07/27/23 10:07 Pulse 85 07/27/23 10:07 Respiratory Rate 18 07/27/23 10:07 Respiratory Effort Normal 07/27/23 10:09 Blood Pressure 143/72 H 07/27/23 10:07 Blood Pressure Position Sitting 07/27/23 10:07 Pulse Oximetry 100 07/27/23 10:07 Oxygen Delivery Method Room Air 07/27/23 10:07 Oxygen Flow Rate 0 07/27/23 10:07 Lab/Test Results Lab/Test Results: POC- Test(urine) Negative Medical Decision Making Lesli is a 33 year old female who presents to the emergency dept for evaluation of R middle finger pain. She reports she injured it while horsing around with her boyfriend, sustained a twisting injury. She reports she has had pain with bending her finger since the incident. She has not taken any medications or done any treatment for this. No distal numbness/tingling or change in color. She is right handed. No significant PMH, says she can take ibuprofen. Physical exam remarkable for tenderness with flexion of finger. She reports she has diffuse tenderness all over the proximal and middle phalanx. No obvious swelling, color change, or change in sensation. Full extension and flexion possible. No other hand injury noted. DDx includes was not limited to fracture, sprain, flexor tendon injury. No red flags concerning for vascular injury or infection. I independently interpreted the following tests: Right hand x-ray, no acute fracture or dislocation noted. This was confirmed by radiology While in the emergency department Lesli received ibuprofen for discomfort. Overall workup today reassuring. History and presentation consistent with finger sprain, though tendon injury cannot be necessarily excluded. Reviewed discharge instructions with patient, including referral to orthopedics, symptomatic management, and use of ibuprofen. She is agreeable with plan of care. 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 Paternal Grandmother Diabetes Heart disease Father Hypertension Social History Smoking/Tobacco Use Status: Current every day Tobacco Type: cigarettes Smoking packs per day: 1 Smoking cigarettes per day: 20.0 Tobacco: How many years used: 15 Quit status: considering quitting Smoking risk assessment performed?: Yes Alcohol Intake: never Drug use: Never Substance use type: does not use Adopted: No Caregiver/Support person: No Foster care: No Household members: significant other, children and other Details: 06/2022: 2-yr-old son & 4 wks Housing: house Number of Children: 1 Communication Needs: None Education Level: high school Do you need help understanding health information?: Rarely current occupation: [employer] Pets and animals: Yes Pets and animals: dog(s) Sexually active: Yes Do you think of yourself as: straight/heterosexual Current gender identity: female What is your relationship status?: never How often do you talk on the phone with friends or family?: three or more times per week How often do you get together with friends or relatives?: twice per week Do you belong to any clubs or organized social groups?: no Panel score (0-1 are the most socially isolated patients): 1 What type of physical activity do you participate in: none Special kaylee needs: No Seatbelt use: always Helmet use: No Drive intox or ride w/intox driver's license reviewing officer: No Do you feel safe at home: Yes Do you feel safe in your relationship?: Yes History History 3 Para Hx # Term Pregnancies 1 Multiple births Hx # Pregnancies Ectopic pregnancies AB induced Hx Number of Living Children AB spontaneous 1
[2023-07-27 11:36] VITALS: BP 143/72; PULSE 85; RESP 18; TEMP 37; O2SAT 100
[2023-07-27] MEDS: Ibuprofen 600 MG TAB PO (11:41)
== END 2023-07-27 11:46 | disposition home or self-care (01) ==
PROVIDERS: Emergency Provider Nurse Practitioner Family; PCP Nurse Practitioner Family
DX: S63.612A Unspecified sprain of right middle finger, initial encounter (principal); F17.210 Nicotine dependence, cigarettes, uncomplicated; X58.XXXA Exposure to other specified factors, initial encounter; Y93.83 Activity, rough housing and horseplay
CPT/HCPCS: 99284; 73130; 99283

== ENCOUNTER 2023-08-16 17:04 | Outpatient (REF) | payer MEDICAID, SELFPAY ==
[2023-08-18 14:42] LABS: Chlamydia Result Negative (Negative); GC Result Negative (Negative)
== END 2023-08-16 17:05 | disposition home or self-care (01) ==
LOC: LBN 17:04
PROVIDERS: PCP Nurse Practitioner Family; Visit Provider Physician Assistant
DX: R30.0 Dysuria (principal); Z11.3 Encounter for screening for infections with a predominantly sexual mode of transmission
CPT/HCPCS: 87491; 87591; 87480; 87510; 87660

== ENCOUNTER 2023-08-20 09:27 | Emergency (ER) | payer MEDICAID, SELFPAY ==
[2023-08-20 09:33] VITALS: BP 140/85; PULSE 89; RESP 18; TEMP 36.6; O2SAT 100
--- NOTE | 2023-08-20 10:01 | DI.US_ITS ---
Exam(s) US PELVIS TRANSVAGINAL EXAM: US PELVIS TRANSVAGINAL CLINICAL HISTORY: abdnormal heavy vaginal bleeding TECHNIQUE: Transabdominal and transvaginal imaging was performed using standard protocol. COMPARISON: No exams were available for comparison FINDINGS: UTERUS: Anteverted. 10.1 x 5.0 x 5.9 cm Endometrium: 5 mm Myometrium: Heterogeneous. No discrete fibroids seen. Cervix: Unremarkable. OVARIES: Right: Cyst or mass: None. Left: Cyst or mass: 3.1 by 3.6 x 3.9 centimeters simple cyst DOPPLER: Color: Symmetric and uniform flow to both ovaries. No hyperemia. CUL-DE-SAC: Free fluid: None. IMPRESSION: 1. Heterogeneous myometrium. No discrete fibroids. Endometrium appears normal. 2. Small left ovarian cyst. No evidence of torsion. DATA REPOSITORY:
[2023-08-20] MEDS: Acetaminophen 325 MG TAB 650 MG PO (10:15)
[2023-08-20 10:23] LABS: Abs Immature Grans 0.02 10^3/uL (0.0-0.06); Absolute Basophil Count 0.01 10^3/uL (0.0-0.2); Absolute Lymphocyte Count 1.38 10^3/uL (1.2-3.4); Absolute Monocyte Count 0.39 10^3/uL (0.1-0.8); Basophils % 0.1 %; Eosinophils % 1.4 %; HCT 39.7 % (36.0-46.0); HGB 12.6 g/dL (11.2-15.7); Immature Grans % 0.3 %; Lymphocytes % 18.9 %; MCH 25.5 pg (27.0-33.0); MCHC 31.7 % (32.0-36.0); MCV 80 fL (80-95); MPV 11.2 fL (8.0-11.0); Monocytes % 5.3 %; Platelet Count 221 10^3/uL (130-400); RBC 4.95 10^6/uL (3.93-5.22); RDW 14.2 % (11.7-14.6); RDW-SD 41.3 fL
[2023-08-20 10:41] LABS: ALT 22 U/L (14-59); AST 15 U/L (15-37); Albumin 3.4 g/dL (3.4-5.0); Alkaline Phosphatase 57 U/L (46-116); Anion Gap 11.1 mmol/L (3-11); BUN 12 mg/dL (7-18); Bilirubin, Total 0.2 mg/dL (0.2-1.0); CO2 23.9 mmol/L (21.0-32.0); Calcium 9.1 mg/dL (8.5-10.1); Chloride 105 mmol/L (98-107); Estimated GFR 76.76 (mL/min/1.73m2); Glucose 150 mg/dL (74-106); Sodium 140 mmol/L (136-145); Total Protein 6.9 g/dL (6.4-8.2)
--- NOTE | 2023-08-20 10:48 | ED.GENADUL_ITS ---
Discharge Plan Disposition Patient Disposition: Home Condition: Stable Discharge Details Clinical Impression: Abnormal vaginal bleeding Primary Care Provider: Silvina Márquez ED Provider: Mariusz Meade Home Meds and New Rx's Prescriptions: Continued sertraline 25 mg tablet 25 mg PO DAILY Qty: 45 0RF norethindrone-e.estradiol-iron [Daiana Fe 1.530 (28)] 1.5 mg-30 mcg (21)/75 mg (7) tablet 1 tab PO DAILY Patient Comments: TAKE 1 TABLET BY MOUTH DAILY Discontinued doxycycline hyclate 100 mg capsule 100 mg PO BID Qty: 14 0RF Discharge Instructions Additional Instructions: Please follow-up with your commercial drone pilot. Call today to schedule follow-up. Return to the ER immediately for any worsening or new concerning symptoms. HPI General Mode of arrival: ambulatory . Date/Time Provider Initiated Documentation: 08/20/23 09:38 . Limitations to Documentation: no limitations . Information obtained by: patient . HPI Narrative: 33-year-old -0-0-2 here with chief complaint of vaginal bleeding. Patient notes normal menses at the end of July. She notes she had some vaginal spotting [id number]. This stopped on 08 16. On 08 17 she developed heavy vaginal bleeding which has continued through today. She notes some increased clots. She has associated tense crampy lower abdominal pain. Of note, patient went to express care on 08 15 and had noted some vaginal discharge. GC and chlamydia as well as vaginal path testing were performed and negative. Patient does note some midcycle spotting that occurred last month as well and is concerned that new or control may be causing symptoms. Patient denies fever and other symptoms. 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: 3 Review of Systems All systems reviewed & are unremarkable except as noted in HPI and below Constitutional Constitutional: Denies fever(s) Gastrointestinal Gastrointestinal: Reports as per HPI Exam Const General: cooperative and no acute distress HENMT Mouth: moist mucous membranes Eyes Conjunctivae: normal conjunctivae Sclera: normal sclerae Resp Auscultation: clear to auscultation bilaterally, no rales, no rhonchi and no wheezes Cardio Rate: regular rate and not tachycardic Rhythm: regular rhythm GI Palpation: soft, not firm, no guarding, no masses, not rigid and tender suprapubicly; with no rebound tenderness Skin General skin exam: no rashes or lesions noted Neuro General: patient alert and patient awake Extrem General: no edema Psych Appearance: grossly normal Mental Status: mental status grossly normal Course Vital Signs Vital signs: Vital Signs Temperature 36.6 C 08/20/23 09:33 Pulse 89 08/20/23 09:33 Respiratory Rate 18 08/20/23 09:33 Blood Pressure 140/85 08/20/23 09:33 Pulse Oximetry 100 08/20/23 09:33 Temperature 36.6 C 08/20/23 09:33 Temperature Source Temporal Artery Scan 08/20/23 09:33 Pulse 89 08/20/23 09:33 Respiratory Rate 18 08/20/23 09:33 Respiratory Effort Normal, Non-Labored 08/20/23 09:38 Blood Pressure 140/85 08/20/23 09:33 Blood Pressure Position Supine 08/20/23 09:33 Pulse Oximetry 100 08/20/23 09:33 Oxygen Delivery Method Room Air 08/20/23 09:33 Oxygen Flow Rate 0 08/20/23 09:33 Pain Level 9 08/20/23 10:15 Lab/Test Results Lab/Test Results: Laboratory Tests Range/Units 08/20/23 10:16 WBC (4.4-10.8) 10^3/uL 7.30 RBC (3.93-5.22) 10^6/uL 4.95 Hgb (11.2-15.7) g/dL 12.6 Hct (36.0-46.0) % 39.7 MCV (80-95) fL 80 MCH (27.0-33.0) pg 25.5 L MCHC (32.0-36.0) % 31.7 L RDW (11.7-14.6) % 14.2 Plt Count (130-400) 10^3/uL 221 MPV (8.0-11.0) fL 11.2 H Immature Gran % % 0.3 Neutrophils % % 74.0 Lymphocytes % % 18.9 Monocytes % % 5.3 Eosinophils % % 1.4 Basophils % % 0.1 Nucleated RBC % (0.0-0.3) % 0.0 Absolute Neutrophils (1.2-6.7) 10^3/uL 5.40 Absolute Lymphocytes (1.2-3.4) 10^3/uL 1.38 Absolute Monocytes (0.1-0.8) 10^3/uL 0.39 Absolute Eosinophils (0.0-0.7) 10^3/uL 0.10 Absolute Basophils (0.0-0.2) 10^3/uL 0.01 Sodium (136-145) mmol/L 140 Potassium (3.5-5.1) mmol/L 4.0 Chloride (98-107) mmol/L 105 Carbon Dioxide (21.0-32.0) mmol/L 23.9 Anion Gap (3-11) mmol/L 11.1 H BUN (7-18) mg/dL 12 Creatinine (0.55-1.02) mg/dL 1.0 Est GFR (CKD-EPI 2020) (mL/min/1.73m2) 76.76 Glucose (74-106) mg/dL 150 H Calcium (8.5-10.1) mg/dL 9.1 Total Bilirubin (0.2-1.0) mg/dL 0.2 AST (15-37) U/L 15 ALT (14-59) U/L 22 Alkaline Phosphatase (46-116) U/L 57 Total Protein (6.4-8.2) g/dL 6.9 Albumin (3.4-5.0) g/dL 3.4 POC- Test(urine) Negative Medical Decision Making 1054 -- 33-year-old female here with midcycle vaginal bleeding that is heavy with clots and associated pelvic cramping. Pelvic ultrasound was performed. Results discussed with technologist to note ovarian cyst with no torsion. No abnormal intrauterine findings. Labs reviewed: Hemoglobin normal. Platelets normal. Chemistry normal. Plan to do discuss followup and potential modification of oral contraceptive with patient's commercial drone pilot. Awaiting callback. 1115 --ultrasound of the pelvis was performed and interpreted by radiology: 1. Heterogeneous myometrium. No discrete fibroids. Endometrium appears normal. 2. Small left ovarian cyst. No evidence of torsion. I called and spoke with the patient's commercial drone pilot, Dr. Ordonez, discussed ED presentation and course, he recommends outpatient follow-up and will schedule e patient to be seen this week. All results and discharge plan discussed with the patient. Usual customary discharge instructions were reviewed. Lab Data Lab results reviewed: Yes I reviewed the patient's lab results. Labs: Laboratory Tests Range/Units 08/20/23 10:16 WBC (4.4-10.8) 10^3/uL 7.30 RBC (3.93-5.22) 10^6/uL 4.95 Hgb (11.2-15.7) g/dL 12.6 Hct (36.0-46.0) % 39.7 MCV (80-95) fL 80 MCH (27.0-33.0) pg 25.5 L MCHC (32.0-36.0) % 31.7 L RDW (11.7-14.6) % 14.2 Plt Count (130-400) 10^3/uL 221 MPV (8.0-11.0) fL 11.2 H Immature Gran % % 0.3 Neutrophils % % 74.0 Lymphocytes % % 18.9 Monocytes % % 5.3 Eosinophils % % 1.4 Basophils % % 0.1 Nucleated RBC % (0.0-0.3) % 0.0 Absolute Neutrophils (1.2-6.7) 10^3/uL 5.40 Absolute Lymphocytes (1.2-3.4) 10^3/uL 1.38 Absolute Monocytes (0.1-0.8) 10^3/uL 0.39 Absolute Eosinophils (0.0-0.7) 10^3/uL 0.10 Absolute Basophils (0.0-0.2) 10^3/uL 0.01 Sodium (136-145) mmol/L 140 Potassium (3.5-5.1) mmol/L 4.0 Chloride (98-107) mmol/L 105 Carbon Dioxide (21.0-32.0) mmol/L 23.9 Anion Gap (3-11) mmol/L 11.1 H BUN (7-18) mg/dL 12 Creatinine (0.55-1.02) mg/dL 1.0 Est GFR (CKD-EPI 2020) (mL/min/1.73m2) 76.76 Glucose (74-106) mg/dL 150 H Calcium (8.5-10.1) mg/dL 9.1 Total Bilirubin (0.2-1.0) mg/dL 0.2 AST (15-37) U/L 15 ALT (14-59) U/L 22 Alkaline Phosphatase (46-116) U/L 57 Total Protein (6.4-8.2) g/dL 6.9 Albumin (3.4-5.0) g/dL 3.4 Serum HCG, Qual Negative Quality:SDOH Health Related Social Needs: No Data to Display [facility] All Active Problems (Updated 08/20/23 @ 10:54 by Mariusz Meade MD) Abnormal vaginal bleeding (Acute) Sprain of finger of right hand (Acute) Anxiety (Chronic) Medical History Gestational diabetes Diet-controlled ([facility]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 Paternal Grandmother Diabetes Heart disease Father Hypertension Social History Smoking/Tobacco Use Status: Current every day Tobacco Type: cigarettes Smoking packs per day: 1 Smoking cigarettes per day: 20.0 Tobacco: How many years used: 15 Quit status: considering quitting Smoking risk assessment performed?: Yes Alcohol Intake: never Drug use: Never Substance use type: does not use Adopted: No Caregiver/Support person: No Foster care: No Household members: significant other, children and other Details: 06/2022: 2-yr-old son & 4 wks Housing: house Number of Children: 1 Communication Needs: None Education Level: high school Do you need help understanding health information?: Rarely current occupation: [employer] Pets and animals: Yes Pets and animals: dog(s) Sexually active: Yes Do you think of yourself as: straight/heterosexual Current gender identity: female What is your relationship status?: never How often do you talk on the phone with friends or family?: three or more times per week How often do you get together with friends or relatives?: twice per week Do you belong to any clubs or organized social groups?: no Panel score (0-1 are the most socially isolated patients): 1 What type of physical activity do you participate in: none Special kaylee needs: No Seatbelt use: always Helmet use: No Drive intox or ride w/intox truck driver flatbed: No Do you feel safe at home: Yes Do you feel safe in your relationship?: Yes History History 3 Para Hx # Term Pregnancies 1 Multiple births Hx # Pregnancies Ectopic pregnancies AB induced Hx Number of Living Children AB spontaneous 1
[2023-08-20 10:58] LABS: HCG Qual (Serum) Negative
== END 2023-08-20 11:31 | disposition home or self-care (01) ==
PROVIDERS: Emergency Provider Student in an Organized Health Care Education/Training Program; PCP Nurse Practitioner Family
DX: N93.8 Other specified abnormal uterine and vaginal bleeding (principal); N83.202 Unspecified ovarian cyst, left side; F17.210 Nicotine dependence, cigarettes, uncomplicated
CPT/HCPCS: 80053; 81025; 99284; 76830; 76856; 84703; 85025; 99283

== ENCOUNTER 2023-10-06 16:34 | Outpatient (REF) | payer MEDICAID, SELFPAY | END 2023-10-06 16:35 | disposition home or self-care (01) | LOC: LBN 16:34 | PROVIDERS: PCP Nurse Practitioner Family; Visit Provider Nurse Practitioner Family | DX: N39.0 Urinary tract infection, site not specified (principal) | CPT/HCPCS: 87077; 87086 ==

== ENCOUNTER 2023-12-31 16:53 | Outpatient (CLI) | payer MEDICAID, SELFPAY ==
[2023-12-31 17:08] LABS: Abs Immature Grans 0.02 10^3/uL (0.0-0.06); Absolute Basophil Count 0.04 10^3/uL (0.0-0.2); Absolute Eosinophil Count 0.11 10^3/uL (0.0-0.7); Absolute Lymphocyte Count 2.71 10^3/uL (1.2-3.4); Absolute Monocyte Count 0.57 10^3/uL (0.1-0.8); Absolute Neutrophil Count 6.01 10^3/uL (1.2-6.7); Basophils % 0.4 %; Eosinophils % 1.2 %; HCT 39.1 % (36.0-46.0); HGB 12.5 g/dL (11.2-15.7); Immature Grans % 0.2 %; Lymphocytes % 28.6 %; MCH 25.1 pg (27.0-33.0); MCV 78 fL (80-95); MPV 11.3 fL (8.0-11.0); Neutrophils % 63.6 %; Platelet Count 245 10^3/uL (130-400); RBC 4.99 10^6/uL (3.93-5.22); RDW 13.8 % (11.7-14.6); RDW-SD 38.9 fL; WBC 9.46 10^3/uL (4.4-10.8)
[2023-12-31 18:52] LABS: ALT 26 U/L (14-59); AST 19 U/L (15-37); Albumin 3.9 g/dL (3.4-5.0); Alkaline Phosphatase 71 U/L (46-116); Anion Gap 11.1 mmol/L (3-11); BUN 13 mg/dL (7-18); Bilirubin, Total 0.19 mg/dL (0.2-1.0); CO2 25.9 mmol/L (21.0-32.0); CREATININE 0.9 mg/dL (0.55-1.02); Calcium 9.2 mg/dL (8.5-10.1); Chloride 104 mmol/L (98-107); Estimated GFR 87.11 (mL/min/1.73m2); Glucose 92 mg/dL (74-106); Potassium 3.8 mmol/L (3.5-5.1); Sodium 141 mmol/L (136-145); TSH (W/Ref FT4) 1.53 uIU/mL (0.36-3.74); Total Protein 7.3 g/dL (6.4-8.2); Vitamin D 25 Total 31.8 ng/mL (30-100)
== END 2023-12-31 16:54 | disposition home or self-care (01) ==
LOC: LBO 16:53
PROVIDERS: PCP Nurse Practitioner Family; Visit Provider Nurse Practitioner Family
DX: R53.83 Other fatigue (principal)
CPT/HCPCS: 36415; 80053; 82306; 84443; 85025

== ENCOUNTER 2024-01-21 09:20 | Emergency (ER) | payer MEDICAID, SELFPAY ==
[2024-01-21 09:23] VITALS: BP 131/81; PULSE 70; RESP 18; TEMP 36.3; O2SAT 99
--- NOTE | 2024-01-21 09:30 | DI.RAD_ITS ---
Exam(s) XR ELBOW RT COMPLETE EXAM: XR ELBOW RT COMPLETE CLINICAL HISTORY: elbow pain/phlebitis, eval FB, injury. TECHNIQUE: 2D digital imaging was performed. COMPARISON: No exams were available for comparison FINDINGS: There appears to be some soft tissue swelling over the dorsal aspect of the proximal forearm. There are no fractures. No swelling of the olecranon bursa. No elbow joint effusion. Radial head and nec k unremarkable. Epicondyles unremarkable. No radiopaque foreign bodies. IMPRESSION: No acute osseous findings in the elbow. Some soft tissue swelling noted on the dorsal aspect forearm. DATA REPOSITORY: RADIATION DOSE DELIVERED:
--- NOTE | 2024-01-21 09:35 | ED.GENADUL_ITS ---
Discharge Plan Disposition Patient Disposition: Home Condition: Stable Discharge Details Clinical Impression: Elbow pain, right, Phlebitis Primary Care Provider: Xochitl Chambers ED Provider: Milka Gold Home Meds and New Rx's Prescriptions: No Action escitalopram oxalate 5 mg tablet 5 mg PO DAILY Qty: 30 1RF Patient Comments: starts next week, hasn't started yet terbinafine HCl 1 % cream 1 applic topical BID Qty: 30 1RF Rx Instructions: apply to both feet use up to 4 weeks sertraline 50 mg tablet 50 mg PO DAILY Qty: 90 3RF Patient Comments: tapering off, ends next week clotrimazole 1 % cream 1 applic topical BID Qty: 45 0RF norethindrone-e.estradiol-iron [Daiana Fe 1.5/30 (28)] 1.5 mg-30 mcg (21)/75 mg (7) tablet 1 tab PO DAILY Patient Comments: TAKE 1 TABLET BY MOUTH DAILY Discharge Instructions Instructions: Phlebitis (DC) Additional Instructions: You were seen in the emergency department today for evaluation of elbow pain, most concerning for phlebitis as well as wear and tear/strain. In our department you had a full physical examination that was reassuring, and had x- ray imaging that did not show any abnormalities of the bones or any foreign bodies, but did show some mild swelling. There is no evidence of infection that would require antibiotics. I do recommend that you trial ibuprofen every 6-8 hours (600 mg) for the next few days to see if that reduces the inflammation and pain. You can use an Arron wrap and ice for swelling, and should follow-up with your primary care provider in the next few days to discuss this visit and any symptoms that change, worsen, or persist. Thank you for allowing us to be part of your care. HPI General Mode of arrival: ambulatory . Date/Time Provider Initiated Documentation: 01/21/24 09:21 . Limitations to Documentation: no limitations . Information obtained by: patient and old records reviewed . HPI Narrative: HPI: This is a 33-year-old female patient without significant past medical history presenting for evaluation of antecubital fossa and elbow pain. The patient reports that about a month ago she had a lab draw and since that time has had pain and a firm swelling in the antecubital fossa. She was seen by her primary care provider yesterday who recommended continuing Tylenol and ibuprofen as well as heat for presumed phlebitis. 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 The patient has not taken any medications today, has been using Tylenol and ibuprofen intermittently. No reported new injuries. No fevers or chills. Other than the elbow the patient is in her normal state of health. She feels like heat makes the pain in the area worse. Exam: Gen: Awake and alert, in no apparent distress HEENT: Non-icteric sclera Neck: Supple Lungs: No apparent respiratory distress, normal respiratory effort. CV: Appears well perfused Abdomen: Non-distended MSK: Moves 4 extremities without apparent limitation in ROM. The patient has tenderness to palpation of the antecubital fossa without induration, fluctuance, or overlying skin changes. The extreme of elbow flexion on the right side is quite painful for the patient, no pain with extension. The circumference of the patient's bilateral arms is symmetrical, no peripheral edema noted. Skin: Visualized skin without rashes, cyanosis. Neuro: Normal Gait, no obvious focal deficits or facial asymmetry. Speaks in full, clear sentences. Psych: Appropriate for situation. MDM: This is a 33-year-old female patient presenting for evaluation of elbow/AC pain. Differential includes but is not limited to phlebitis, I certainly considered DVT though the patient has no evidence of whole arm swelling that would be suggestive of this etiology. She has strong radial pulses which decreases my concern for arterial pathology. No physical exam evidence for abscess or cellulitis. No distinct trauma though certainly I considered fracture, dislocation, ligamentous sprain, strain, contusion. I provided the patient with Tylenol and ibuprofen and we will obtain an x-ray to evaluate any osseous abnormalities or for the presence of retained foreign body. ED Course: X-ray imaging without evidence of foreign body or osseous abnormality, did show some mild soft tissue swelling in the anterior aspect of the proximal forearm. These findings were shared with the patient, and I recommended conservative management with NSAIDs, ice or heat depending on which feels better, and Arron wrap as needed for support and compression. At this time, the patient has had a full medical evaluation and is safe for discharge to home. They are hemodynamically stable, ambulatory, and tolerating PO. They are understanding of the follow-up plan and return precautions. They left our facility without incident. Milka Gold MD Related Data Home Medications ?Medication ?Instructions ?Recorded ?Confirmed norethindrone 1.5 mg-ethinyl 1 tab PO DAILY 07/27/23 01/21/24 estradiol 30 mcg(21)/iron 75 mg(7) tablet (Daiana Fe 1.5/30 (28)) clotrimazole 1 % topical cream 1 applic topical BID #45 grams 12/16/23 01/21/24 sertraline 50 mg tablet 50 mg PO DAILY #90 tabs 12/17/23 01/21/24 escitalopram oxalate 5 mg tablet 5 mg PO DAILY #30 tabs 01/19/24 01/21/24 terbinafine HCl 1 % topical cream 1 applic topical BID #30 grams 01/19/24 01/21/24 Previous Rx's ?Medication ?Instructions ?Recorded clotrimazole 1 % topical cream 1 applic topical BID #45 grams 12/16/23 sertraline 50 mg tablet 50 mg PO DAILY #90 tabs 12/17/23 escitalopram oxalate 5 mg tablet 5 mg PO DAILY #30 tabs 01/19/24 terbinafine HCl 1 % topical cream 1 applic topical BID #30 grams 01/19/24 Allergies Allergy/AdvReac Type Severity Reaction Status Date / Time aspirin Allergy syncope Verified 01/21/24 09:46 bupropion (From Wellbutrin) AdvReac Chest pain Verified 01/21/24 09:46 General Stated Complaint: Orthopedic CALLIE: 4 Course Vital Signs Vital signs: Vital Signs Temperature 36.3 C L 01/21/24 09:23 Pulse 70 01/21/24 09:23 Respiratory Rate 18 01/21/24 09:23 Blood Pressure 131/81 01/21/24 09:23 Pulse Oximetry 99 01/21/24 09:23 Temperature 36.3 C L 01/21/24 09:23 Temperature Source Skin 01/21/24 09:23 Pulse 70 01/21/24 09:23 Respiratory Rate 18 01/21/24 09:23 Respiratory Effort Normal, Non-Labored 01/21/24 09:27 Blood Pressure 131/81 01/21/24 09:23 Blood Pressure Position Sitting 01/21/24 09:23 Pulse Oximetry 99 01/21/24 09:23 Oxygen Delivery Method Room Air 01/21/24 09:23 Oxygen Flow Rate 0 01/21/24 09:23 Pain Level 10 01/21/24 09:23 Medical Decision Making Quality:SDOH Health Related Social Needs: No Data to Display [facility] [place] All Active Problems (Updated 01/21/24 @ 10:36 by Milka Gold MD) Phlebitis (Acute) Elbow pain, right (Acute) Athlete's foot (Acute) Depressed mood (Acute) Finger pain, right (Acute) Fatigue (Acute) Anxiety (Chronic) Medical History (Updated 01/21/24 @ 10:36 by Milka Gold MD) Gestational diabetes Diet-controlled (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 Barrera-[facility] History of wisdom tooth extraction (2013) Family History Mother Asthma Depression Breast cancer Paternal Aunt No problems noted. Paternal Grandmother Diabetes Heart disease Father Hypertension Social History Smoking/Tobacco Use Status: Current every day Tobacco Type: cigarettes Smoking packs per day: 1 Smoking cigarettes per day: 20.0 Tobacco: How many years used: 15 Quit status: considering quitting Smoking risk assessment performed?: Yes Alcohol Intake: never Drug use: Never Substance use type: does not use Adopted: No Caregiver/Support person: No Foster care: No Household members: significant other, children and other Details: 06/2022: 2-yr-old son & 4 wks Housing: house Number of Children: 1 Communication Needs: None Education Level: high school Do you need help understanding health information?: Rarely current occupation: [employer] Pets and animals: Yes Pets and animals: dog(s) Sexually active: Yes Do you think of yourself as: straight/heterosexual Current gender identity: female What is your relationship status?: never How often do you talk on the phone with friends or family?: three or more times per week How often do you get together with friends or relatives?: twice per week Do you belong to any clubs or organized social groups?: no Panel score (0-1 are the most socially isolated patients): 1 What type of physical activity do you participate in: none Special kaylee needs: No Seatbelt use: always Helmet use: No Drive intox or ride w/intox wagon driver: No Do you feel safe at home: Yes Do you feel safe in your relationship?: Yes History History 3 Para Hx # Term Pregnancies 1 Multiple births Hx # Pregnancies Ectopic pregnancies AB induced Hx Number of Living Children AB spontaneous 1
[2024-01-21] MEDS: Acetaminophen 500 MG TAB 1000 MG PO (09:45)
[2024-01-21] MEDS: Ibuprofen 600 MG TAB PO (09:45)
== END 2024-01-21 10:44 | disposition home or self-care (01) ==
PROVIDERS: Emergency Provider Emergency Medicine; PCP Nurse Practitioner Family
DX: T81.72XA Complication of vein following a procedure, not elsewhere classified, initial encounter (principal); I80.8 Phlebitis and thrombophlebitis of other sites; F17.210 Nicotine dependence, cigarettes, uncomplicated
CPT/HCPCS: 99283; 73080

== ENCOUNTER 2024-08-11 22:23 | Outpatient (REF) | payer MEDICAID, SELFPAY ==
[2024-08-11 21:53] LABS: Bacteria Many HPF (Negative); C & S Indicated? C&S Done As Ordered; Casts Negative LPF (Negative); Crystals Negative HPF (Negative); Epithelial Cells Few HPF (Negative); Mucus Negative (Negative)
== END 2024-08-11 22:24 | disposition home or self-care (01) ==
LOC: LBN 22:23
PROVIDERS: PCP Nurse Practitioner Family; Visit Provider Physician Assistant Medical
DX: R30.0 Dysuria (principal); B96.20 Unspecified Escherichia coli [E. coli] as the cause of diseases classified elsewhere; Z16.11 Resistance to penicillins
CPT/HCPCS: 87077; 81015; 87086; 87186; 87480; 87510; 87660

== ENCOUNTER 2024-08-31 13:59 | Outpatient (REF) | payer MEDICAID, SELFPAY ==
[2024-08-31 23:16] LABS: Bacteria Few HPF (Negative); C & S Indicated? Yes; Casts Negative LPF (Negative); Crystals Negative HPF (Negative); Epithelial Cells Rare HPF (Negative); Mucus Negative (Negative); RBC 0-2 HPF (0-2); WBC >50 HPF (0-5)
== END 2024-08-31 14:00 | disposition home or self-care (01) ==
LOC: LBN 13:59
PROVIDERS: PCP Nurse Practitioner Family; Visit Provider Physician Assistant Medical
DX: R30.0 Dysuria (principal)
CPT/HCPCS: 87077; 81015; 87086; 87186; 87480; 87510; 87660